=== PATIENT | male | born 1935 | race Caucasian/White ===

== ENCOUNTER 2016-11-29 12:39 | Inpatient (IN) | payer OTHER ==
--- NOTE | 2016-11-29 12:50 | PDOC ---
History of Present Illness - General History Source: Patient Exam Limitations: No Limitations - History of Present Illness Initial Comments: 11/29/16 12:51 The patient is an 81-year-old [place]-Speaking male, lives alone at his private residence, with a significant past medical history of hypertension who presents to the emergency department via EMS status post unwitnessed fall. The patients neighbor from across the street, found him slightly verbal at the bottom of approximately four steps. EMS was called. On EMS arrival, the patient was combative. EMS states that the patient is not on any medications, as they confirmed it with the patients daughter. Allergies: None Known Past Surgical History: Cholecystectomy Social History: No tobacco, ETOH and recreational drug use. <Ila Monzon - Last Filed: 11/29/16 15:33> <Scotty Barry - Last Filed: 11/29/16 15:48> - General Stated Complaint: FALL Time Seen by Provider: 11/29/16 12:50 Past History <Ila Monzon - Last Filed: 11/29/16 15:33> - Past Medical History HTN: Yes - Surgical History Cholecystectomy: Yes - Psycho/Social/Smoking Cessation Hx Suicidal Ideation: No Smoking Status: No Smoking History: Never smoked Number of Cigarettes Smoked Daily: 0 <Scotty Barry - Last Filed: 11/29/16 15:48> - Past Medical History Allergies/Adverse Reactions: Allergies Allergy/AdvReac Type Severity Reaction Status Date / Time No Known Allergies Allergy Verified 11/29/16 13:26 Home Medications: Ambulatory Orders Unobtainable [Unobtainable] 06/12/14 Review of Systems - Review of Systems Able to Perform ROS?: No (Unobtainable) <Ila Monzon - Last Filed: 11/29/16 15:33> *Physical Exam - Physical Exam Comments: 11/29/16 12:51 GENERAL: The patient is awake, alert, looking around HEAD: Normocephalic, large contussoin/eccchymosis on R orbit EYES: 3mm/symmetric bilaterally, large contusion/ecchyosis over R orbit, L sided gaze deviation ENT: nonverbalk Moist mucous membranes. NECK: Normal range of motion, supple, no tenderness LUNGS: Breath sounds equal, clear to auscultation bilaterally. No wheezes, no rhonchi, no rales. HEART: Regular rate and rhythm, ABDOMEN: Soft, nontender, normoactive bowel sounds. No guarding, no rebound. No CVA tenderness EXTREMITIES: Normal range of motion, no edema. No clubbing or cyanosis. No cords, erythema, or tenderness. NEUROLOGICAL: No facial assymetry, moving all 4 extremities spontaneously, withdarws to pain bl SKIN: Warm, Dry, normal turgor. <MonzonIla hernandez - Last Filed: 11/29/16 15:33> ED Treatment Course - LABORATORY CBC & Chemistry Diagram: 11/29/16 13:00 11/29/16 13:00 - RADIOLOGY Radiograph Interpretation: 11/29/16 14:19 EXAM: RAD/CHEST X-RAY PORTABLE IMPRESSION: Frontal view of the chest is provided. Prior study dated October. No focal consolidation or pleural effusion is seen. There is some increased interstitial lung markings slightly more pronounced compared to prior study, which may be chronic. Calcification of the aorta is consistent with atherosclerotic disease. Cardiac silhouette is within normal limits. Elevation of the humeral heads raises concern for rotator cuff tears. EXAM: CT/CERVICAL SPINE CT W/O CONTR IMPRESSION: No gross fracture is identified. Both orbits appear intact. Moderate right periorbital and preseptal soft tissue swelling is present as well as soft tissue swelling over the right cheek and the right superior orbital margin/forehead. CT scan of the cervical spine without intravenous contrast Coronal and sagittal reconstruction images were obtained. There is mild anterior listhesis of C5 over C6, approximately 3 mm that is likely degenerative. Otherwise, no gross fracture, subluxation or prevertebral soft tissue swelling is seen. No jumped facets are identified. There is significant bilateral facet hypertrophy from C3 through C7 level . C5-C6 anterior spondylosis. Visualized portion of the airway appears unremarkable. No gross enlarged lymph nodes are identified. Lung windows at the thoracic inlet appear unremarkable. Note is made of a postop defect in the right mastoid air cells. EXAM: CT/HEAD CT WITHOUT CONTRAST IMPRESSION: Status post trauma. Rule out hemorrhage CT scan of the brain without intravenous contrast. Since 06/12/2014, there remains moderate atrophy, ventricular dilatation and chronic microvascular ischemic changes. No mass lesion, gross acute infarct or intracranial hemorrhage is seen. There is no shift of the midline structures Mild to moderate deviation of the nasal septum to the right. Mild mucosal thickening in the right maxillary antrum. Calcification of the cavernous carotid arteries are present. The mastoid air cells are well aerated and the calvarium is intact. A left-sided hearing aid is noted. There is moderate right periorbital and preseptal soft tissue swelling extending to the right cheek and forehead. EXAM: CT/FACIAL BONES CT W/O CONTRAST IMPRESSION: CT scan of the facial bones without intravenous contrast. Coronal and sagittal reconstruction images were obtained. There is moderate right periorbital and preseptal soft tissue swelling extending to the right cheek , inferiorly as well as laterally over the anterior aspect of the zygomatic arch and extending superiorly to the right for head. Both orbits appear intact without evidence of a fracture. No other fracture is identified. Both eye globes appear intact . Bilateral upper neck and submandibular subcentimeter lymph nodes are present which are nonspecific. Mild mucosal thickening in the ethmoid air cells. Postop changes in the nasal cavity. [id number] mucosal thickening in the right maxillary antrum, inferiorly. Wpguq-lu-iczxaoxx sized calcified plaque at the common carotid bifurcation, bilaterally. <Ila Monzon - Last Filed: 11/29/16 15:33> - LABORATORY CBC & Chemistry Diagram: 11/29/16 13:00 11/29/16 13:00 <Scotty Barry - Last Filed: 11/29/16 15:48> Medical Decision Making - Medical Decision Making 11/29/16 14:[address] Allan rS. Immediate response. Case was discussed. Accepts case. 11/29/16 14:28 Called Neurologist, Dr. Shea. Case was discussed. Accepts case. <Ila Monzon - Last Filed: 11/29/16 15:33> - Medical Decision Making 11/29/16 12:59 81Y hx of htn, unknown other pmhx, found down in [facility] front stoop at the bottom of about 4 steps - found by neighbor to be on the groun d- was originall combative by EMS, pt has large contusion on his R face with hematoma over his right eye. pt otherwise looking around and pulling away, but is not verbal to any questions in citizen [place] or [place]. Pt also noted to be looking on the left side. He was combative and seen moving all 4 extremities. Pupils were 3mm and reactive symmetricaly. will give the patient ativan as pt will not lie still. unclera cause for fall - (?slip and fall, cva, syncope, bleed?) concern for possible ICH --> pt rushed to CT after labs and giving pt some ativan. will also obtain CT head, cspine, orbits ekg to r/o arrythmia per EMS who talked to red pt not on any medications currently. no history of a/c use reported. 11/29/16 13:44 no obvious source of blood on the CT head awaiting official read pts bp elevated to 199, will repeat, if elevated will give labetalol for bp control pt with L gae preference, withdrawning from pain bilaterally 11/29/16 14:[address] head cspine facial bones w/o acute fx or bleed pt still not appropriately responsive leaning more towards CVA as cause for his fall - case d/w dr. alexandra agree with mangaement will admit to telemetry as possible arrythmia as cause for fall as well. Case discussed in detail with admitting physician including history, physical exam and ancillary studies. Admitting physician has assumed care for the patient, will follow all pending diagnostics and will complete the evaluation and treatment. CRITICAL CARE DOCUMENTATION: I spent ~35 minutes of Critical Care time, excluding separately billable procedures, involving high complexity decision making to assess, manipulate and support vital system function(s) to treat single or multiple vital organ system failure and/or to prevent further life threatening deterioration of the patient' s condition. 11/29/16 14:31 11/29/16 14:37 son mentioned that the pt has been very depressed recently as his is in the [place] will ck tylenol, asa, utox, etoh level deut o prior history of etoh abbuse 11/29/16 14:[address] shea - agreed with managment requests MRI Also after the CT, the pt was noted to be hypoxic down to the 70s wit andrade good wave form - suspect it was secondary to the ativan. the pt was put on a NRB for approx 20 min, aftewraeds it was removed and the pts sat was 96-97 on 3L of NC. and was respireing spontaneously. <Scotty Barry - Last Filed: 11/29/16 15:48> *DC/Admit/Observation/Transfer - Attestations Scribe Attestion: 11/29/16 12:51 Documentation prepared by Ila Monzon, acting as medical communication specialist for Scotty Barry MD. <Ila Monzon - Last Filed: 11/29/16 15:33> - Discharge Dispostion Admit: Yes <Scotty Barry - Last Filed: 11/29/16 15:48> Diagnosis at time of Disposition: Head injury Qualifiers: Encounter type: initial encounter Qualified Code(s): S09.90XA - Unspecified injury of head, initial encounter Altered mental status Qualifiers: Altered mental status type: unspecified Qualified Code(s): R41.82 - Altered mental status, unspecified - Discharge Dispostion Condition at time of disposition: Guarded
[2016-11-29] MEDS ORDERED: LORAZEPAM CARPU-JECT 2 MG/ML DISP.SYRIN IVPUSH ONE (12:57)
[2016-11-29] MEDS ORDERED: LORAZEPAM CARPU-JECT 2 MG/ML DISP.SYRIN ONE (12:59)
[2016-11-29 13:11] LABS: BASOPHIL 0.4 % (0-2.0); EOSINOPHIL 0.2 % (0-4.5); MCH 28.2 pg (25.7-33.7); MCHC 32.4 g/dl (32.0-35.9); MEAN PLT VOLUME 8.6 fl (7.5-11.1); NEUTROPHILS 82.7 % (42.8-82.8); PLATELET COUNT 230 K/MM3 (134-434); RDW 15.4 % (11.9-15.9); WHITE BLOOD COUNT 9.2 K/mm3 (4.0-10.0)
[2016-11-29 13:29] LABS: ALBUMIN 3.9 g/dl (3.4-5.0); ANION GAP 13 (8-16); BILIRUBIN,TOTAL 0.6 mg/dL (0.2-1.0); CALCIUM 8.4 mg/dL (8.5-10.1); CO2 21 mmol/L (21-32); GLUCOSE,RANDOM 152 mg/dL (74-106); SGPT/ALT 24 U/L (12-78); TOT PROT 7.1 g/dl (6.4-8.2)
[2016-11-29 13:32] LABS: ALK PHOS 124 U/L (45-117); TROPONIN I < 0.02 ng/ml (0.00-0.05)
[2016-11-29 13:34] LABS: MAGNESIUM 2.1 mg/dL (1.8-2.4); SGOT/AST 33 U/L (15-37)
[2016-11-29] MEDS ORDERED: LABETALOL HCL 5 MG/1 ML (100MG/20 ML VIAL) IVPUSH ONE (13:44)
[2016-11-29 13:50] LABS: INR 1.02 (0.82-1.09); PROTHROMBIN TIME (PATIENT) 11.2 SEC (9.98-11.88)
[2016-11-29] MEDS ORDERED: LABETALOL HCL 5 MG/1 ML (100MG/20 ML VIAL) ONE (13:51)
[2016-11-29] MEDS ORDERED: DIPHTH,PERTUSS(ACELL),TET VAC 0.5 ML VIAL IM ONE (14:31)
[2016-11-29 15:30] LABS: SALICYLATE < 4.0 mg/dl (0.0-30.0)
[2016-11-29 15:38] LABS: ALCOHOL < 5.0 mg/dl (0-5)
--- NOTE | 2016-11-29 15:44 | EKG ---
Test Reason : Blood Pressure : / mmHG Vent. Rate : 093 BPM Atrial Rate : 093 BPM P-R Int : 268 ms QRS Dur : 088 ms QT Int : 354 ms P-R-T Axes : 057 076 039 degrees QTc Int : 440 ms SINUS RHYTHM WITH 1ST DEGREE A-V BLOCK WITH OCCASIONAL PREMATURE VENTRICULAR COMPLEXES NONSPECIFIC ST ABNORMALITY WHEN COMPARED WITH ECG OF 03-OCT-2010 17:33, PREMATURE VENTRICULAR COMPLEXES ARE NOW PRESENT Confirmed by MINDI MONROE MD ([id number]) on 11/29/2016 3:44:20 PM Referred By: Confirmed By:MINDI MONROE MD
--- NOTE | 2016-11-29 15:55 | CON.CARD ---
Consult Consult Specialty:: cardiology Reason for Consultation:: s/p fall: ? CVA; ? syncope - History of Present Illness History of Present Illness: The patient is an 81-year-old man (braden Arana), lives alone at his private residence, with a significant past medical history of hypertension, ETOH abuse ( last drank about a year ago, per pt's son), who presents to the emergency department via EMS status post unwitnessed fall. The patients neighbor from across the street, found him slightly verbal at the bottom of approximately four steps. EMS was called. On EMS arrival, the patient was combative. EMS states that the patient is not on any medications, as they confirmed it with the patients daughter. (According to pt's sons, pt has been on medications in the past for HTN, but has been noncompliant to them). - History Source History Provided By: Family Member, Medical Record Limitations to Obtaining History: Other (pt does not answer verbal queries; fights physcial examination) - Past Medical History Cardio/Vascular: Yes: HTN Renal/: No: Renal Failure Psych: Yes: Other (pt's sons say he has, since the of his a year ago , become more forgetful, repetitive in speech, "demented") Musculoskeletal: Yes: Other (unsteady gait) - Alcohol/Substance Use Hx Alcohol Use: Yes - Smoking History Smoking history: Never smoked Aproximately how many cigarettes per day: 0 - Social History Usual Living Arrangement: With Child Home Medications - Allergies Allergies/Adverse Reactions: Allergies Allergy/AdvReac Type Severity Reaction Status Date / Time No Known Allergies Allergy Verified 11/29/16 13:26 - Home Medications Home Medications: Ambulatory Orders Unobtainable [Unobtainable] 06/12/14 Family Disease History - Family Disease History Family History: Denies Review of Systems - Review of Systems Constitutional: reports: Weakness Eyes: reports: No Symptoms HENT: reports: No Symptoms Neck: reports: No Symptoms Cardiovascular: reports: No Symptoms Respiratory: reports: No Symptoms Gastrointestinal: reports: No Symptoms Genitourinary: reports: No Symptoms Breasts: reports: No Symptoms Reported Musculoskeletal: reports: Decreased ROM, Muscle Weakness Neurological: reports: Weakness Psychiatric: reports: Other (dementia) - Risk Factors Known Risk Factors: Yes: Age, Gender, Hypertension, Physical Inactivity Vital Signs: Vital Signs Temperature 97.7 F 11/29/16 12:53 Pulse Rate 90 11/29/16 15:29 Respiratory Rate 18 11/29/16 15:29 Blood Pressure 148/89 11/29/16 14:25 O2 Sat by Pulse Oximetry (%) 91 L 11/29/16 15:29 Constitutional: Yes: Other (facial eccymosis, hematomas) Eyes: Yes: Other Neck: Yes: WNL Respiratory: Yes: Regular Gastrointestinal: Yes: Soft Renal/: No: Anuria Cardiovascular: Yes: Regular Rate and Rhythm JVD: No Carotid Bruit: No PMI: Non-Displaced Heart Sounds: Yes: S1 (split S1), S2 Musculoskeletal: Yes: Muscle Weakness Extremities: Yes: Cool Edema: No Peripheral Pulses WNL: Yes Integumentary: Yes: Bruising, Laceration, Other Neurological: Yes: Weakness Psychiatric: Yes: Agitated, Other - Other Data Labs, Other Data: INR, PTT INR 1.02 (0.82-1.09) 11/29/16 13:00 Abnormal Lab Results 11/29/16 11/29/16 11/29/16 13:00 13:00 14:35 RBC 5.61 H Monocytes % 3.4 L Random Glucose 152 H Calcium 8.4 L Alkaline Phosphatase 124 H D Creatine Kinase 312 H CK-MB (CK-2) 5.618 H Acetaminophen < 2.0 L Imaging - Results Chest X-ray: Image Reviewed (no acute pathology) Ultrasound: Image Reviewed (ECHO: limited study (pt combative); overal normal LVEF; aortic valve appears to open well) EKG: Image Reviewed (NSR) Problem List - Problems (1) Altered mental status Code(s): R41.82 - ALTERED MENTAL STATUS, UNSPECIFIED Qualifiers: Altered mental status type: unspecified Qualified Code(s): R41.82 - Altered mental status, unspecified (2) Head injury Code(s): S09.90XA - UNSPECIFIED INJURY OF HEAD, INITIAL ENCOUNTER Qualifiers: Encounter type: initial encounter Qualified Code(s): S09.90XA - Unspecified injury of head, initial encounter (3) Soft tissue injury Code(s): T14.8 - OTHER INJURY OF UNSPECIFIED BODY REGION (4) Fall Assessment/Plan: unwitnessed fall; family says pt has been unsteady on his feet for months, if not years. CT head: no acute IC pathology. TNI < 0.02; f/u serially. TSH WNL. ECHO: normal LVEF; no significant valvular abnormalities, but limited study. Maintain hydration; check orthostatics. Carotid artery US. F/u with neurology. Code(s): W19.XXXA - UNSPECIFIED FALL, INITIAL ENCOUNTER (5) HTN (hypertension) Code(s): I10 - ESSENTIAL (PRIMARY) HYPERTENSION (6) ETOH abuse Assessment/Plan: Per son, pt has had no alcohol for the past year. Code(s): F10.10 - ALCOHOL ABUSE, UNCOMPLICATED (7) Dementia Assessment/Plan: Increasing mental deterioration since of his a year ago (per sons). f/u workup. Code(s): F03.90 - UNSPECIFIED DEMENTIA WITHOUT BEHAVIORAL DISTURBANCE
[2016-11-29 16:31] VITALS: BMI 22.4
[2016-11-29] MEDS ORDERED: DEXTROSE 5%-1/3 NS - 500 ML IV SCH (22:45)
[2016-11-29] MEDS: LORAZEPAM CARPU-JECT 2 MG/ML DISP.SYRIN IVPUSH PRN (23:26)
[2016-11-30] MEDS: LORAZEPAM CARPU-JECT 2 MG/ML DISP.SYRIN IVPUSH PRN ×3 (07:23→23:40)
--- NOTE | 2016-11-30 10:30 | PN ---
Progress Note, Physician Chief Complaint: Cardiology for Hank. History of Present Illness: TELE: NSR with intermittent VPCs Echo done yesterday- technically difficult study but LV function appeared grossly normal. - Current Medication List Current Medications: Active Medications Dextrose/Sodium Chloride (D5-1/3ns -) 500 mls @ 75 mls/hr IV ASDIR ART Last Admin: 11/30/16 10:27 Dose: 75 mls/hr Lorazepam (Ativan Injection -) 0.5 mg IVPUSH Q6H PRN PRN Reason: ANXIETY Last Admin: 11/30/16 07:23 Dose: 0.5 mg - Objective Vital Signs: Vital Signs Temperature 98.2 F 11/29/16 21:50 Pulse Rate 90 11/29/16 21:50 Respiratory Rate 20 11/29/16 21:50 Blood Pressure 112/50 11/29/16 21:50 O2 Sat by Pulse Oximetry (%) 99 11/29/16 21:00 Constitutional: Yes: Other (agitated, in restraints) HENT: Yes: Other (right periorbital hematoma) Cardiovascular: Yes: Regular Rate and Rhythm Respiratory: Yes: CTA Bilaterally, Other (clear anteriorly) Gastrointestinal: Yes: Soft Edema: No Labs: INR, PTT INR 1.02 (0.82-1.09) 11/29/16 13:00 Laboratory Tests 11/29/16 11/29/16 13:00 13:00 WBC 9.2 Hgb 15.8 Hct 48.8 Plt Count 230 Potassium 3.8 Creatinine 1.0 D Troponin I < 0.02 - ....Imaging EKG: Image Reviewed Assessment/Plan IMP: 81 M s/p fall: syncope vs seizure? REC: Grossly nl LV function on echo yesterday. To continue telemetry. Neuro evaluation pending.
--- NOTE | 2016-11-30 13:13 | EKG ---
Test Reason : Blood Pressure : / mmHG Vent. Rate : 086 BPM Atrial Rate : 086 BPM P-R Int : 242 ms QRS Dur : 084 ms QT Int : 378 ms P-R-T Axes : 042 065 055 degrees QTc Int : 452 ms SINUS RHYTHM WITH 1ST DEGREE A-V BLOCK OTHERWISE NORMAL ECG WHEN COMPARED WITH ECG OF 29-NOV-2016 13:36, PREMATURE VENTRICULAR COMPLEXES ARE NO LONGER PRESENT Confirmed by MABEL DAVIS, MINDI ([id number]) on 11/30/2016 1:13:17 PM Referred By: John CASTRO Confirmed By:MINDI MONROE MD
--- NOTE | 2016-11-30 13:52 | PN ---
Progress Note, Physician History of Present Illness: 81 yo old who fell and was found outdoors on the steps - Current Medication List Current Medications: Active Medications Dextrose/Sodium Chloride (D5-1/3ns -) 500 mls @ 75 mls/hr IV ASDIR ART Last Admin: 11/30/16 10:27 Dose: 75 mls/hr Lorazepam (Ativan Injection -) 0.5 mg IVPUSH Q6H PRN PRN Reason: ANXIETY Last Admin: 11/30/16 07:23 Dose: 0.5 mg - Objective Vital Signs: Vital Signs Temperature 98.2 F 11/29/16 21:50 Pulse Rate 90 11/29/16 21:50 Respiratory Rate 20 11/29/16 21:50 Blood Pressure 112/50 11/29/16 21:50 O2 Sat by Pulse Oximetry (%) 97 11/30/16 09:00 Labs: INR, PTT INR 1.02 (0.82-1.09) 11/29/16 13:00
[2016-11-30] MEDS ORDERED: ACETAMINOPHEN 500 MG TABLET (FP) PO PRN (16:56)
--- NOTE | 2016-11-30 19:09 | CONSULT ---
Consult - History of Present Illness History of Present Illness: 81 yo old who fell and was found outdoors on the steps. He had fallen and injured the right side of his head and periorbital area. Upon arrival to the ED he was hypothermic and disoriented. There was local trauma to the face and head. The head CT reported generalized atrophy with ventriculomegaly but no acute trauma or ICH. CT of facial bones and cervical spine was neg for fracture. Since admission he has become more agitated as medications were adjusted to avoid oversedation in the presence of head trauma. The son reports the patient has had a progressive slow decline in memory function and becomes agitated easily over the past year. He lives alone since of 59 years was placed in NH with dementia. 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 Cardio/Vascular: Yes: HTN Renal/: No: Renal Failure Psych: Yes: Other (pt's sons say he has, since the of his a year ago , become more forgetful, repetitive in speech, "demented") Musculoskeletal: Yes: Other (unsteady gait) - Alcohol/Substance Use Hx Alcohol Use: Yes - Smoking History Smoking history: Never smoked Have you smoked in the past 12 months: No Aproximately how many cigarettes per day: 0 - Social History Usual Living Arrangement: With Child Home Medications - Allergies Allergies/Adverse Reactions: Allergies Allergy/AdvReac Type Severity Reaction Status Date / Time No Known Allergies Allergy Verified 11/29/16 13:26 - Home Medications Home Medications: Ambulatory Orders Unobtainable [Unobtainable] 06/12/14 Physical Exam Vital Signs: Vital Signs Temperature 98.2 F 11/29/16 21:50 Pulse Rate 87 11/30/16 14:09 Respiratory Rate 20 11/30/16 14:09 Blood Pressure 138/65 11/30/16 14:09 O2 Sat by Pulse Oximetry (%) 97 11/30/16 09:00 Constitutional: Yes: Well Nourished, Moderate Distress (cries out in pain has he holds the right side of his head. son is able to speak with patient in [place] language with no aphasia. He is disoriented to place and time.) HENT: No: Atraumatic (right sided periorbital edema, eccyhmosis and erythemia noted with EOM full) Respiratory: Yes: Regular Neurological: Yes: Alert, Cran Nerves II-XII Intact. No: Oriented (to person only.), Aphasia, Ataxia, Dysarthria, Facial Droop (No focal motor deficits, purposefully using all extremities. DTR 1/4 with absent ankle reflexes and bilateral upgoing plantar response. 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 Supportive medical care by IM team.
[2016-11-30] MEDS ORDERED: INFLUENZA VACCINE 45 MCG/0.5 ML (MDV 16-17) IM ONE (19:15)
--- NOTE | 2016-11-30 20:47 | HP ---
Admitting History and Physical - Primary Care Physician PCP: Allan Sr - Admission Chief Complaint: Head injury,. Concussion History of Present Illness: As per daughter who has an apartment in his house he had gone out of the house yesterday with a bucket of salt and was waiting to go see his in the NH when he fell on the steps and hit his head. His neighbour across the street saw him sitting and being non verbal and called the ambulance.In the ambulance he became very combative and brought to ED. Besides being confused and trashing around there was no focal neuro deficit. He was sedated with Ativan 1mg and underwent a CT of head which did not show any acute changes and he was admitted . As per family he has become very forgetfu and agitated on occasion and since his was confined to NH for dementia has been more emotional, wobbly while walking and refusing to take any meds for hypertension. History Source: Family Member Limitations to Obtaining History: Dementia, Other (disoriented claiming he is home) - Past Medical History [employer]: Yes: Dementia Cardiovascular: Yes: HTN Pulmonary: No: Asthma, Bronchitis, Cancer, COPD, O2 Dependent, Pneumonia, Previously Intubated, Pulmonary Embolus, Pulmonary Fibrosis, Sleep Apnea, Other Renal/: No: Renal Failure Psych: Yes: Other (pt's sons say he has, since the of his a year ago , become more forgetful, repetitive in speech, "demented") Musculoskeletal: Yes: Other (unsteady gait) - Smoking History Smoking history: Never smoked Have you smoked in the past 12 months: No Aproximately how many cigarettes per day: 0 - Alcohol/Substance Use Hx Alcohol Use: Yes History of Substance Use: reports: None - Social History Usual Living Arrangement: Yes: Alone, Other (daughter lives in the apartment upstairs) Home Medications - Allergies Allergies/Adverse Reactions: Allergies Allergy/AdvReac Type Severity Reaction Status Date / Time No Known Allergies Allergy Verified 11/29/16 13:26 - Home Medications Home Medications: Ambulatory Orders NK [No Known Home Medication] 11/30/16 Review of Systems - Review of Systems Eyes: reports: No Symptoms HENT: reports: No Symptoms Neck: reports: No Symptoms Cardiovascular: denies: No Symptoms, Chest Pain, Edema, Palpitations, Shortness of Breath, Other Respiratory: denies: No Symptoms, Cough, Exercise Intolerance, Hemoptysis, Orthopnea, PND, Snoring, SOB, SOB on Exertion, Wheezing, Other Gastrointestinal: reports: No Symptoms Genitourinary: reports: No Symptoms Musculoskeletal: reports: No Symptoms Integumentary: reports: No Symptoms Neurological: reports: Confusion, Unsteady Gait Endocrine: reports: No Symptoms Psychiatric: reports: Anxiety, Panic Physical Examination Vital Signs: Vital Signs Temperature 98.2 F 11/30/16 19:47 Pulse Rate 92 H 11/30/16 19:47 Respiratory Rate 20 11/30/16 19:47 Blood Pressure 128/72 11/30/16 19:47 O2 Sat by Pulse Oximetry (%) 97 11/30/16 09:00 Findings/Remarks: There is a huge hematoma on lateral to right eye and also around the eye with inability to open the right eye.There is hematoma of the nose. There is excoriation of skin just above the forehead with a dressing Constitutional: Yes: Anxious, Other (disoriented) Eyes: Yes: Other (there is severe edema of both eyelids of right eye, the eye lids there is subconjubctival hemorrhage Left eye is normal and pupil reacts to light) HENT: Yes: Pharyngeal Erythema Neck: Yes: Supple, Trachea Midline Cardiovascular: Yes: Regular Rate and Rhythm, S1, S2 Respiratory: Yes: Regular, CTA Bilaterally Gastrointestinal: Yes: Normal Bowel Sounds, Soft Renal/: Yes: WNL Breast(s): Yes: WNL Musculoskeletal: Yes: WNL Extremities: Yes: WNL Edema: No Peripheral Pulses WNL: Yes Integumentary: Yes: Other (There ia an area about 2cm by 3cm just above the forehead with excoriation of the skin) Neurological: Yes: Alert, Confusion, Cran Nerves II-XII Intact Psychiatric: Yes: Alert Imaging - Results Cat Scan: Report Reviewed EKG: Report Reviewed Problem List - Problems (1) Altered mental status Assessment/Plan: He is dioriented and confused. As per family he has been agitated and very emotional at home Code(s): R41.82 - ALTERED MENTAL STATUS, UNSPECIFIED Qualifiers: Altered mental status type: unspecified Qualified Code(s): R41.82 - Altered mental status, unspecified (2) Dementia Assessment/Plan: As per family he has been confused off and on. Sometimes very agitated and refusing to even eat. Code(s): F03.90 - UNSPECIFIED DEMENTIA WITHOUT BEHAVIORAL DISTURBANCE (3) HTN (hypertension) Assessment/Plan: Was hypertensive in past and has been refusing to take meds Code(s): I10 - ESSENTIAL (PRIMARY) HYPERTENSION (4) Head injury Code(s): S09.90XA - UNSPECIFIED INJURY OF HEAD, INITIAL ENCOUNTER Qualifiers: Encounter type: initial encounter Qualified Code(s): S09.90XA - Unspecified injury of head, initial encounter (5) Soft tissue injury Assessment/Plan: Hematoma of the lateral area to right eye, edema of both eyelids of right eye, hematome of the nose Code(s): T14.8 - OTHER INJURY OF UNSPECIFIED BODY REGION Assessment/Plan Has episodes of severe agitation requiring sedation with IV Ativan. Will start small dose of Seroquel for agitation and dementia. 's consult appreciated. Will need placement in the NH.
[2016-11-30] MEDS ORDERED: QUEtiapine FUMARATE 25 MG TABLET (FP) PO SCH (22:00)
[2016-12-01] MEDS: LORAZEPAM CARPU-JECT 2 MG/ML DISP.SYRIN IVPUSH PRN ×3 (08:24→21:16)
[2016-12-01] MEDS ORDERED: LORAZEPAM CARPU-JECT 2 MG/ML DISP.SYRIN IVPUSH PRN (08:41)
[2016-12-01] MEDS ORDERED: LORAZEPAM CARPU-JECT 2 MG/ML DISP.SYRIN IVPUSH STA (09:19)
[2016-12-01] MEDS ORDERED: QUEtiapine FUMARATE 50 MG TABLET PO SCH (10:00)
[2016-12-01] MEDS: QUEtiapine FUMARATE 25 MG TABLET (FP) PO SCH ×3 (10:52→21:11)
--- NOTE | 2016-12-01 11:25 | PN ---
Progress Note, Physician Chief Complaint: Coverage for [employer] Sitting in chair in hallway, no acute distress Neuro consult noted - Current Medication List Current Medications: Active Medications Acetaminophen (Tylenol -) 500 mg PO Q4H PRN PRN Reason: FEVER OR PAIN Lorazepam (Ativan Injection -) 1 mg IVPUSH Q6H PRN PRN Reason: ANXIETY Quetiapine Fumarate (Seroquel -) 25 mg PO BID ART Last Admin: 12/01/16 10:52 Dose: Not Given - Objective Vital Signs: Vital Signs Temperature 97.5 F L 12/01/16 02:00 Pulse Rate 108 H 12/01/16 11:06 Respiratory Rate 20 12/01/16 11:06 Blood Pressure 130/56 12/01/16 11:06 O2 Sat by Pulse Oximetry (%) 97 11/30/16 09:00 Constitutional: Yes: Calm Cardiovascular: Yes: Regular Rate and Rhythm Respiratory: Yes: CTA Bilaterally Gastrointestinal: Yes: Soft Edema: No Labs: INR, PTT INR 1.02 (0.82-1.09) 11/29/16 13:00 Assessment/Plan IMP: 81 M s/p fall: likely mechanical REC: Grossly nl LV function on echo. Telemetry unrevealing. Falls precautions. SNF placement recommended due to progressive dementia.
--- NOTE | 2016-12-01 22:28 | PN ---
Progress Note, Physician History of Present Illness: Confused and agitated off and on.Was sedated with Ativan as he was trashing around. Presently well sedated. - Current Medication List Current Medications: Active Medications Acetaminophen (Tylenol -) 500 mg PO Q4H PRN PRN Reason: FEVER OR PAIN Lorazepam (Ativan Injection -) 1 mg IVPUSH Q4H PRN PRN Reason: AGITATION Last Admin: 12/01/16 21:16 Dose: 1 mg Quetiapine Fumarate (Seroquel -) 25 mg PO BID ART Last Admin: 12/01/16 21:11 Dose: Not Given - Objective Vital Signs: Vital Signs Temperature 98.0 F 12/01/16 15:29 Pulse Rate 97 H 12/01/16 15:29 Respiratory Rate 18 12/01/16 15:29 Blood Pressure 111/72 12/01/16 15:29 O2 Sat by Pulse Oximetry (%) 97 11/30/16 09:00 Constitutional: Yes: No Distress Eyes: Yes: Other (right eye with severe lid hematoma) HENT: Yes: WNL Neck: Yes: Supple Cardiovascular: Yes: Regular Rate and Rhythm, S1, S2 Respiratory: Yes: CTA Bilaterally Gastrointestinal: Yes: Normal Bowel Sounds, Soft Genitourinary: Yes: WNL Musculoskeletal: Yes: WNL Extremities: Yes: WNL Edema: No Peripheral Pulses WNL: Yes Integumentary: Yes: Bruising, Other (swelling of the nose and right side of face and right side of frontal area is less) Wound/Incision: Yes: Other (forehead woud is clean and covered with scab) Neurological: Yes: Confusion, Cran Nerves II-XII Intact ...Motor Strength: WNL Psychiatric: Yes: Agitated Labs: INR, PTT INR 1.02 (0.82-1.09) 11/29/16 13:00 Problem List - Problems (1) Altered mental status Assessment/Plan: Continues confused and agitated off and on Code(s): R41.82 - ALTERED MENTAL STATUS, UNSPECIFIED Qualifiers: Altered mental status type: unspecified Qualified Code(s): R41.82 - Altered mental status, unspecified (2) Dementia Assessment/Plan: Dementia is moderate and will require intermediate treatment Code(s): F03.90 - UNSPECIFIED DEMENTIA WITHOUT BEHAVIORAL DISTURBANCE (3) HTN (hypertension) Code(s): I10 - ESSENTIAL (PRIMARY) HYPERTENSION (4) Head injury Code(s): S09.90XA - UNSPECIFIED INJURY OF HEAD, INITIAL ENCOUNTER Qualifiers: Encounter type: initial encounter Qualified Code(s): S09.90XA - Unspecified injury of head, initial encounter (5) Soft tissue injury Code(s): T14.8 - OTHER INJURY OF UNSPECIFIED BODY REGION Assessment/Plan Will get psychiatrist evaluation before placement. Continue Ativan for agitation and have started him on Seroquel.
[2016-12-02] MEDS: LORAZEPAM CARPU-JECT 2 MG/ML DISP.SYRIN IVPUSH PRN ×4 (03:57→21:48)
[2016-12-02 07:11] LABS: BASOPHIL 0.7 % (0-2.0); EOSINOPHIL 0.3 % (0-4.5); MCH 28.6 pg (25.7-33.7); MCHC 33.6 g/dl (32.0-35.9); MEAN CELL VOLUME 85.3 fl (80-96); MEAN PLT VOLUME 8.7 fl (7.5-11.1); NEUTROPHILS 66.9 % (42.8-82.8); PLATELET COUNT 207 K/MM3 (134-434); RDW 15.1 % (11.9-15.9); WHITE BLOOD COUNT 9.3 K/mm3 (4.0-10.0)
[2016-12-02 07:43] LABS: ALBUMIN 3.5 g/dl (3.4-5.0); ANION GAP 10 (8-16); BILIRUBIN,TOTAL 0.9 mg/dL (0.2-1.0); CALCIUM 8.5 mg/dL (8.5-10.1); CO2 26 mmol/L (21-32); CREATININE 0.7 mg/dL (0.7-1.3); GLUCOSE,RANDOM 83 mg/dL (74-106); SGOT/AST 28 U/L (15-37); SGPT/ALT 25 U/L (12-78); TOT PROT 6.5 g/dl (6.4-8.2)
[2016-12-02 07:44] LABS: ALK PHOS 100 U/L (45-117)
[2016-12-02] MEDS: QUEtiapine FUMARATE 25 MG TABLET (FP) PO SCH ×2 (08:28→09:21)
--- NOTE | 2016-12-02 11:04 | CON.PSY ---
Psychiatry Consult Chief Complaint: +. FGamily re[ports inbcreased cognitive impairment since was placed in a NH. Patient apparantly fell while trying to put salt in front of his house. Symptoms: reports: Memory Impairment, Inability to Control Temper, Aggressivity , Impulsivity, Oppositionalism - Previous Psychiatric Treatment Outpatient: None Inpatient: None - Previous Substance Abuse Treatment Outpatient: None Inpatient: None - Family History Family History: Unremarkable - Current Medications Current Medications: Active Medications Acetaminophen (Tylenol -) 500 mg PO Q4H PRN PRN Reason: FEVER OR PAIN Lorazepam (Ativan Injection -) 1 mg IVPUSH Q4H PRN PRN Reason: AGITATION Last Admin: 12/02/16 03:57 Dose: 1 mg Memantine (Namenda -) 5 mg PO BID ART Olanzapine (Zyprexa -) 5 mg PO BID ART - Allergies Allergies: Allergies Allergy/AdvReac Type Severity Reaction Status Date / Time No Known Allergies Allergy Verified 11/29/16 13:26 - Current Living Status Usual Living Arrangement: With Significant Other - Current Mental Status Evaluation Appearance: Disheveled Attitude: Belligerent - Affect Affect: Constrictive Appropriateness: Not Appropriate - Mood Mood: Angry - Speech/Language Expressive: Delayed - Psychomotor Activity Psychomotor Activity: Agitated - Thought Process Thought Process: Loosening of Associations - Thought Content Hallucinations: Absent Delusions: Absent - Self Perception Self Perception: Depersonalization - Cognition Attention: Diminished Orientation: Time, Person, Place Memory, Immediate Recall: Impaired Memory, Remote: Impaired - Concentration Serial Sevens Intact: No Simple Calculations Intact: No - Abstraction Proverb Interpretation: Impaired Judgement: Severely Impaired - Insight Insight: Impaired - Impulse Control Impulse Control: Severly Impaired - Suicidal Ideation Suicidal Ideation: No - Homicidal Ideation Homicidal Ideation: No
--- NOTE | 2016-12-02 11:25 | PN ---
Progress Note (short form) - Note Progress Note: Neurology 81 yo old who fell and was found outdoors on the steps, previously seen by Dr. Shea. He had fallen and injured the right side of his head and periorbital area. Upon arrival to the ED he was hypothermic and disoriented. There was local trauma to the face and head. The head CT reported generalized atrophy with ventriculomegaly but no acute trauma or ICH. CT of facial bones and cervical spine was neg for fracture. Since admission he has become more agitated as medications were adjusted to avoid oversedation in the presence of head trauma. The son reports the patient has had a progressive slow decline in memory function and becomes agitated easily over the past year. He lives alone since of 59 years was placed in NH with dementia. Was smonloent during my encounter, minimally active. Active Medications Acetaminophen (Tylenol -) 500 mg PO Q4H PRN PRN Reason: FEVER OR PAIN Lorazepam (Ativan Injection -) 1 mg IVPUSH Q4H PRN PRN Reason: AGITATION Last Admin: 12/02/16 11:13 Dose: 1 mg Memantine (Namenda -) 5 mg PO BID ART Olanzapine (Zyprexa -) 5 mg PO BID ART Physical Exam Vital Signs: Vital Signs Temperature 99 F 12/02/16 00:11 Pulse Rate 92 H 12/02/16 09:00 Respiratory Rate 18 12/02/16 09:00 Blood Pressure 154/64 12/02/16 09:00 O2 Sat by Pulse Oximetry (%) 94 L 12/02/16 09:00 Constitutional: Yes: Well Nourished, Moderate Distress (cries out in pain has he holds the right side of his head. son is able to speak with patient in [place] language with no aphasia. He is disoriented to place and time.) HENT: No: Atraumatic (right sided periorbital edema, eccyhmosis and erythemia noted with EOM full) Respiratory: Yes: Regular Neurological: Yes: Alert, Cran Nerves II-XII Intact. No: Oriented (to person only.), Aphasia, Ataxia, Dysarthria, Facial Droop (No focal motor deficits, purposefully using all extremities. DTR 1/4 with absent ankle reflexes and bilateral upgoing plantar response. Optic disc not visualized with CT neg for acute brain trauma or fx) CBCD WBC 9.3 K/mm3 (4.0-10.0) 12/02/16 05:35 RBC 5.43 M/mm3 (4.00-5.60) 12/02/16 05:35 Hgb 15.5 GM/dL (11.7-16.9) 12/02/16 05:35 Hct 46.3 % (35.4-49) 12/02/16 05:35 MCV 85.3 fl (80-96) 12/02/16 05:35 MCHC 33.6 g/dl (32.0-35.9) 12/02/16 05:35 RDW 15.1 % (11.9-15.9) 12/02/16 05:35 Plt Count 207 K/MM3 (134-434) 12/02/16 05:35 MPV 8.7 fl (7.5-11.1) 12/02/16 05:35 CMP Sodium 140 mmol/L (136-145) 12/02/16 05:35 Potassium 4.0 mmol/L (3.5-5.1) 12/02/16 05:35 Chloride 104 mmol/L (98-107) 12/02/16 05:35 Carbon Dioxide 26 mmol/L (21-32) D 12/02/16 05:35 Anion Gap 10 (8-16) 12/02/16 05:35 BUN 22 mg/dL (7-18) H D 12/02/16 05:35 Creatinine 0.7 mg/dL (0.7-1.3) D 12/02/16 05:35 Creat Clearance w eGFR > 60 (>60) 12/02/16 05:35 Calcium 8.5 mg/dL (8.5-10.1) 12/02/16 05:35 Total Bilirubin 0.9 mg/dL (0.2-1.0) D 12/02/16 05:35 AST 28 U/L (15-37) 12/02/16 05:35 ALT 25 U/L (12-78) 12/02/16 05:35 Alkaline Phosphatase 100 U/L (45-117) 12/02/16 05:35 Total Protein 6.5 g/dl (6.4-8.2) 12/02/16 05:35 Albumin 3.5 g/dl (3.4-5.0) 12/02/16 05:[address] head, facial, and neck reviewed as Above Assessment/Plan 81 yo old who fell and was found outdoors on the steps, previously seen by Dr. Shea. He had fallen and injured the right side of his head and periorbital area. Upon arrival to the ED he was hypothermic and disoriented. There was local trauma to the face and head. CT reported generalized atrophy with ventriculomegaly but no acute trauma or ICH. CT of facial bones and cervical spine was neg for fracture. Remains somnolent and agree with avoiding sedative medications Agree with shelter return once more awake and responsive Would not require MRI brain at this time Fall precautions PT/OT when able
[2016-12-02] MEDS: MEMANTINE HCL 5 MG TABLET (UD) PO SCH ×2 (13:56→20:59)
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
[2016-12-02] MEDS: OLANZapine 5 MG TABLET PO SCH (20:59)
--- NOTE | 2016-12-02 23:59 | PN ---
Progress Note, Physician History of Present Illness: Continues confused and agitated off and on. PO intake adequate as per nursing - Current Medication List Current Medications: Active Medications Acetaminophen (Tylenol -) 500 mg PO Q4H PRN PRN Reason: FEVER OR PAIN Lorazepam (Ativan Injection -) 1 mg IVPUSH Q4H PRN PRN Reason: AGITATION Last Admin: 12/02/16 21:48 Dose: 1 mg Memantine (Namenda -) 5 mg PO BID [facility] Last Admin: 12/02/16 20:59 Dose: 5 mg Olanzapine (Zyprexa -) 5 mg PO BID [facility] Last Admin: 12/02/16 20:59 Dose: 5 mg - Objective Vital Signs: Vital Signs Temperature 99 F 12/02/16 23:44 Pulse Rate 90 12/02/16 23:44 Respiratory Rate 18 12/02/16 23:44 Blood Pressure 126/71 12/02/16 23:44 O2 Sat by Pulse Oximetry (%) 92 L 12/02/16 21:00 Constitutional: Yes: Well Nourished, Calm Eyes: Yes: Conjunctiva Clear, EOM Intact HENT: Yes: WNL Neck: Yes: Supple Cardiovascular: Yes: Regular Rate and Rhythm, S1, S2 Respiratory: Yes: CTA Bilaterally Gastrointestinal: Yes: Normal Bowel Sounds, Soft Genitourinary: Yes: WNL Musculoskeletal: Yes: WNL Extremities: Yes: WNL Edema: No Peripheral Pulses WNL: Yes Integumentary: Yes: WNL Neurological: Yes: Alert, Cran Nerves II-XII Intact ...Motor Strength: WNL Psychiatric: Yes: Alert, Oriented Labs: CBC, BMP 12/02/16 05:35 12/02/16 05:35 INR, PTT INR 1.02 (0.82-1.09) 11/29/16 13:00 - ....Imaging Chest X-ray: Report Reviewed, Image Reviewed EKG: Report Reviewed, Image Reviewed Problem List - Problems (1) Altered mental status Assessment/Plan: He is sleeping better with Seroquel Code(s): R41.82 - ALTERED MENTAL STATUS, UNSPECIFIED Qualifiers: Altered mental status type: unspecified Qualified Code(s): R41.82 - Altered mental status, unspecified (2) Dementia Code(s): F03.90 - UNSPECIFIED DEMENTIA WITHOUT BEHAVIORAL DISTURBANCE Qualifiers: Dementia type: unspecified type Dementia behavioral disturbance: with behavioral disturbance Qualified Code(s): F03.91 - Unspecified dementia with behavioral disturbance; F10.97 - Alcohol use, unspecified with alcohol- induced persisting dementia (3) HTN (hypertension) Code(s): I10 - ESSENTIAL (PRIMARY) HYPERTENSION (4) Head injury Code(s): S09.90XA - UNSPECIFIED INJURY OF HEAD, INITIAL ENCOUNTER Qualifiers: Encounter type: initial encounter Qualified Code(s): S09.90XA - Unspecified injury of head, initial encounter (5) Soft tissue injury Code(s): T14.8 - OTHER INJURY OF UNSPECIFIED BODY REGION Assessment/Plan [facility]
[2016-12-03] MEDS: LORAZEPAM CARPU-JECT 2 MG/ML DISP.SYRIN IVPUSH PRN ×3 (02:44→12:35)
[2016-12-03] MEDS: OLANZapine 5 MG TABLET PO SCH (09:05)
[2016-12-03] MEDS: MEMANTINE HCL 5 MG TABLET (UD) PO SCH (09:05)
--- NOTE | 2016-12-03 10:32 | PN ---
Progress Note (short form) - Note Progress Note: Neurology 81 yo old who fell and was found outdoors on the steps, previously seen by Dr. Shea. He had fallen and injured the right side of his head and periorbital area. Upon arrival to the ED he was hypothermic and disoriented. There was local trauma to the face and head. The head CT reported generalized atrophy with ventriculomegaly but no acute trauma or ICH. CT of facial bones and cervical spine was neg for fracture. Since admission he has become more agitated as medications were adjusted to avoid oversedation in the presence of head trauma. The son reports the patient has had a progressive slow decline in memory function and becomes agitated easily over the past year. He lives alone since of 59 years was placed in NH with dementia. More awake and interactive today. Cooperative with aggitation. Active Medications Acetaminophen (Tylenol -) 500 mg PO Q4H PRN PRN Reason: FEVER OR PAIN Lorazepam (Ativan Injection -) 1 mg IVPUSH Q4H PRN PRN Reason: AGITATION Last Admin: 12/03/16 09:06 Dose: 1 mg Memantine (Namenda -) 5 mg PO BID [facility] Last Admin: 12/03/16 09:05 Dose: 5 mg Olanzapine (Zyprexa -) 5 mg PO BID [facility] Last Admin: 12/03/16 09:05 Dose: 5 mg Physical Exam Vital Signs: Last Vital Signs Temp Pulse Resp BP Pulse Ox 99 F 90 18 126/71 92 L 12/02/16 23:44 12/02/16 23:44 12/02/16 23:44 12/02/16 23:44 12/02/16 21:00 Constitutional: Yes: Well Nourished, Moderate Distress (cries out in pain has he holds the right side of his head. son is able to speak with patient in [place] language with no aphasia. He is disoriented to place and time.) HENT: No: Atraumatic (right sided periorbital edema, eccyhmosis and erythemia noted with EOM full) Respiratory: Yes: Regular Neurological: Yes: Alert, Cran Nerves II-XII Intact. No: Oriented (to person only.), Aphasia, Ataxia, Dysarthria, Facial Droop (No focal motor deficits, purposefully using all extremities. DTR 1/4 with absent ankle reflexes and bilateral upgoing plantar response. Optic disc not visualized with CT neg for acute brain trauma or fx) CBCD WBC 9.3 K/mm3 (4.0-10.0) 12/02/16 05:35 RBC 5.43 M/mm3 (4.00-5.60) 12/02/16 05:35 Hgb 15.5 GM/dL (11.7-16.9) 12/02/16 05:35 Hct 46.3 % (35.4-49) 12/02/16 05:35 MCV 85.3 fl (80-96) 12/02/16 05:35 MCHC 33.6 g/dl (32.0-35.9) 12/02/16 05:35 RDW 15.1 % (11.9-15.9) 12/02/16 05:35 Plt Count 207 K/MM3 (134-434) 12/02/16 05:35 MPV 8.7 fl (7.5-11.1) 12/02/16 05:35 CMP Sodium 140 mmol/L (136-145) 12/02/16 05:35 Potassium 4.0 mmol/L (3.5-5.1) 12/02/16 05:35 Chloride 104 mmol/L (98-107) 12/02/16 05:35 Carbon Dioxide 26 mmol/L (21-32) D 12/02/16 05:35 Anion Gap 10 (8-16) 12/02/16 05:35 BUN 22 mg/dL (7-18) H D 12/02/16 05:35 Creatinine 0.7 mg/dL (0.7-1.3) D 12/02/16 05:35 Creat Clearance w eGFR > 60 (>60) 12/02/16 05:35 Calcium 8.5 mg/dL (8.5-10.1) 12/02/16 05:35 Total Bilirubin 0.9 mg/dL (0.2-1.0) D 12/02/16 05:35 AST 28 U/L (15-37) 12/02/16 05:35 ALT 25 U/L (12-78) 12/02/16 05:35 Alkaline Phosphatase 100 U/L (45-117) 12/02/16 05:35 Total Protein 6.5 g/dl (6.4-8.2) 12/02/16 05:35 Albumin 3.5 g/dl (3.4-5.0) 12/02/16 05:[address] head, facial, and neck reviewed as Above Assessment/Plan 81 yo old who fell and was found outdoors on the steps, previously seen by Dr. Shea. He had fallen and injured the right side of his head and periorbital area. Upon arrival to the ED he was hypothermic and disoriented. There was local trauma to the face and head. CT reported generalized atrophy with ventriculomegaly but no acute trauma or ICH. CT of facial bones and cervical spine was neg for fracture. Remains somnolent and agree with avoiding sedative medications Agree with shelter return once more awake and responsive Would not require MRI brain at this time Fall precautions PT/OT when able
[2016-12-03 11:15] VITALS: BP 114/64; PULSE 84; TEMP 97.4
--- NOTE | 2017-01-02 13:50 | DS ---
Physical Examination Vital Signs: Vital Signs Temperature 97.4 F L 12/03/16 10:00 Pulse Rate 84 12/03/16 10:00 Respiratory Rate 18 12/03/16 10:00 Blood Pressure 114/64 12/03/16 10:00 O2 Sat by Pulse Oximetry (%) 92 L 12/02/16 21:00 Constitutional: Yes: Well Nourished, No Distress, Calm Eyes: Yes: WNL HENT: Yes: WNL Neck: Yes: WNL, Supple Cardiovascular: Yes: Regular Rate and Rhythm, S1, S2 Respiratory: Yes: Regular, CTA Bilaterally Gastrointestinal: Yes: Normal Bowel Sounds Renal/: Yes: WNL Musculoskeletal: Yes: WNL Extremities: Yes: WNL Edema: No Peripheral Pulses WNL: Yes Integumentary: Yes: WNL Wound/Incision: Yes: Clean/Dry Neurological: Yes: Alert, Oriented ...Motor Strength: WNL Psychiatric: Yes: Alert, Oriented Labs: CBC, BMP 12/02/16 05:35 12/02/16 05:35 Discharge Summary Reason For Visit: AMS,INJURY OF HEAD Current Active Problems Dementia (Acute) Dementia with aggressive behavior (Acute) Procedures: Principal: CT scan of Brain Hospital Course: 81 y/o who slipped on ice and fell on concrete steps of his home. Neighbour saw him sitting on the steps bleeding from his forehead and called ambulance. In the ED he was confused with ecchymosis of the forehead and hematoma of the facial bones. His neuro exam was normal.CT scan of brain did not show any bleed. Xrays of facial bones did not show any fractures. He was admitted to hospital for observation but continued to be agitated off and on and was given Haldol. He gradually was able to talk to his family but had to be restrained.He was seen by ,psychiatrist and was started on Zyprexa 5 mg. He was transferred to the care home as requested by his family as he could not be controlled at home. Condition: Guarded - Instructions Disposition: LONG TERM FACILITY - Home Medications Comprehensive Discharge Medication List: Ambulatory Orders Olanzapine [Zyprexa -] 5 mg PO BID tablet 12/03/16 Acetaminophen [Tylenol] 650 mg PO Q4H PRN 12/04/16 Memantine HCl [Namenda -] 10 mg PO BID 12/04/16 Lorazepam [Ativan] 1 mg PO DAILY #30 tablet MDD 1 12/12/16 Lorazepam [Ativan] 1.5 mg PO HS #45 tablet MDD 1.5 12/12/16 Memantine HCl [Namenda -] 5 mg PO BID tab 12/12/16 Olanzapine [Zyprexa -] 5 mg PO BID tablet 12/12/16
== END 2016-12-03 13:31 | DRG 914 ==
LOC: JER 12:39 → JERBED 14:42 → J4W 17:22 → J5S 11-30 20:41
PROVIDERS: ADMIT Internal Medicine Hematology & Oncology; ATTEND Internal Medicine Hematology & Oncology
DX: S09.8XXA Other specified injuries of head, initial encounter (principal); S05.8X9A Other injuries of unspecified eye and orbit, initial encounter; I10 Essential (primary) hypertension; F03.90 Unspecified dementia, unspecified severity, without behavioral disturbance, psychotic disturbance, mood disturbance, and anxiety; F10.10 Alcohol abuse, uncomplicated; T14.8 Other injury of unspecified body region; R68.0 Hypothermia, not associated with low environmental temperature; R26.81 Unsteadiness on feet; W10.8XXA Fall (on) (from) other stairs and steps, initial encounter; Y93.89 Activity, other specified; Y92.098 Other place in other non-institutional residence as the place of occurrence of the external cause
CPT/HCPCS: 36415; 70450-TC; 70486-TC; 71010-TC; 72125-TC; 80053; 80307; 82550; 82553; 83735; 84443; 84484; 85025; 85610; 86850; 86900; 86901; 93005; 93010; 93306-TC; 97116-GP; 97162-PG; 99285-25; G0008; Q2037

== ENCOUNTER 2016-12-04 02:26 | Inpatient (IN) | payer OTHER ==
[2016-12-04 02:37] VITALS: BMI 19.8
[2016-12-04] MEDS ORDERED: LORAZEPAM CARPU-JECT 2 MG/ML DISP.SYRIN IM ONE (02:46)
[2016-12-04] MEDS ORDERED: LORAZEPAM CARPU-JECT 2 MG/ML DISP.SYRIN ONE ×3 (02:47→10:50)
--- NOTE | 2016-12-04 02:47 | PDOC ---
History of Present Illness - General History Source: Intermediate Records Exam Limitations: Dementia - History of Present Illness Initial Comments: 12/04/16 03:57 The patient is a 81 year old male with significant past medical history of dementia, hypertension, and hyperlipidemia who presents to the ED [facility] from [facility] for being combative. Patient is a poor historian due to dementia. No other history was provided by the [facility] other than patient being combative. Allergies: NKDA Social History: No alcohol, tobacco, or drug use reported. Past Surgical History: cholecystectomy PCP: Dr. Araceli Valdes 12/04/16 06:26 <Rashida Mead - Last Filed: 12/04/16 06:26> - General History Source: Patient <Jamshid Marcos - Last Filed: 12/04/16 19:17> - General Chief Complaint: Psychiatric Stated Complaint: AMS Time Seen by Provider: 12/04/16 02:44 Past History <Rashida Mead - Last Filed: 12/04/16 06:26> - Past Medical History Anemia: No Asthma: No Cancer: No Cardiac Disorders: No CVA: No COPD: No CHF: No Dementia: Yes (aggressive behavior) Diabetes: No GI Disorders: No Disorders: No HTN: Yes Hypercholesterolemia: Yes Liver Disease: No Seizures: No Thyroid Disease: No - Surgical History Abdominal Surgery: No Appendectomy: No Cardiac Surgery: No Cholecystectomy: Yes Lung Surgery: No Neurologic Surgery: No Orthopedic Surgery: No - Psycho/Social/Smoking Cessation Hx Suicidal Ideation: No Smoking Status: No Smoking History: Never smoked Have you smoked in the past 12 months: No Number of Cigarettes Smoked Daily: 0 Hx Alcohol Use: Yes Drug/Substance Use Hx: No Substance Use Type: None Hx Substance Use Treatment: No <Jamshid Marcos - Last Filed: 12/04/16 19:17> - Past Medical History Allergies/Adverse Reactions: Allergies Allergy/AdvReac Type Severity Reaction Status Date / Time No Known Allergies Allergy Verified 11/29/16 13:26 Home Medications: Ambulatory Orders Olanzapine [Zyprexa -] 5 mg PO BID tablet 12/03/16 Acetaminophen [Tylenol] 650 mg PO Q4H PRN 12/04/16 Memantine HCl [Namenda -] 10 mg PO BID 12/04/16 Review of Systems - Review of Systems Able to Perform ROS?: No Comments:: 12/04/16 03:57 Unable to obtain secondary to dementia. <Rashida Mead - Last Filed: 12/04/16 06:26> *Physical Exam - Vital Signs Last Vital Signs Temp Pulse Resp BP Pulse Ox 97.9 F 80 20 128/77 98 12/04/16 02:34 12/04/16 02:34 12/04/16 02:34 12/04/16 02:34 12/04/16 02:34 - Physical Exam Comments: 12/04/16 03:57 GENERAL: Well developed, well nourished. Awake and alert. No acute distress. HEENT: Normocephalic. PERRLA, EOMI. Large healing abrasion across the entire forehead. Periorbital swelling bilaterally. Bilateral scleral injection/hemorrhage, right greater than left. No hemotympanum. Swelling over the bridge of the nose. Moist mucous membranes. Oropharynx is clear. NECK: Supple. Full ROM. No JVD. Carotid pulses 2+ and symmetric, without bruits. No thyromegaly. No lymphadenopathy. CARDIOVASCULAR: Regular rate and rhythm. No murmurs, rubs, or gallops. Distal pulses are 2+ and symmetric. PULMONARY: No evidence of respiratory distress. Lungs clear to auscultation bilaterally. No wheezing, rales or rhonchi. ABDOMINAL: Soft. Non-tender. Non-distended. No rebound or guarding. No organomegaly. Normoactive bowel sounds. MUSCULOSKELETAL Normal range of motion at all joints. No gross bony deformities or tenderness. No CVA tenderness. EXTREMITIES: No cyanosis. No clubbing. No edema. No calf tenderness. SKIN: Warm and dry. Normal capillary refill. No rashes. No jaundice. NEUROLOGICAL: Awake and alert. Not answering questions. No gross motor deficits. No gross neurological deficits. <Rashida Mead - Last Filed: 12/04/16 06:26> - Vital Signs Last Vital Signs Temp Pulse Resp BP Pulse Ox 97.9 F 80 20 128/77 98 12/04/16 02:34 12/04/16 02:34 12/04/16 02:34 12/04/16 02:34 12/04/16 02:34 <Jamshid Marcos - Last Filed: 12/04/16 19:17> ED Treatment Course - LABORATORY CBC & Chemistry Diagram: 12/04/16 02:50 12/04/16 02:50 - ADDITIONAL ORDERS Additional order review: Laboratory Results 12/04/16 12/04/16 12/04/16 03:00 02:50 02:50 INR Sodium Potassium Chloride Carbon Dioxide Anion Gap BUN Creatinine Creat Clearance w eGFR Random Glucose Lactic Acid 1.401 Calcium Magnesium Total Bilirubin AST ALT Alkaline Phosphatase Creatine Kinase CK-MB (CK-2) Rel Index Cancelled Troponin I Total Protein Albumin Urine Color Jennifer Urine Appearance Clear Urine pH 5.0 Ur Specific [place] 1.030 Urine Protein Negative Urine Glucose (UA) 1+ H Urine Ketones Negative Urine Blood 2+ H Urine Nitrite Negative Urine Bilirubin Negative Urine Urobilinogen 4.0 e.u/dl Ur Leukocyte Esterase Negative Urine RBC 142 Urine WBC 3 Hyaline Casts 1 Urine Mucus Moderate 12/04/16 12/04/16 02:50 02:50 INR 1.07 Sodium 141 Potassium 3.8 Chloride 105 Carbon Dioxide 25 Anion Gap 11 BUN 28 H D Creatinine 0.7 Creat Clearance w eGFR > 60 Random Glucose 114 H D Lactic Acid Calcium 8.3 L Magnesium 2.0 Total Bilirubin 0.7 D AST 49 H D ALT 34 D Alkaline Phosphatase 91 Creatine Kinase 893 H D CK-MB (CK-2) Rel Index Troponin I < 0.02 Total Protein 6.2 L Albumin 3.2 L Urine Color Urine Appearance Urine pH Ur Specific [place] Urine Protein Urine Glucose (UA) Urine Ketones Urine Blood Urine Nitrite Urine Bilirubin Urine Urobilinogen Ur Leukocyte Esterase Urine RBC Urine WBC Hyaline Casts Urine Mucus 12/04/16 02:50 RBC 5.12 MCV 85.1 MCHC 33.9 RDW 14.8 MPV 9.1 Neutrophils % 63.9 Lymphocytes % 26.4 Monocytes % 7.9 Eosinophils % 1.0 D Basophils % 0.8 - RADIOLOGY Radiograph Interpretation: 12/04/16 04:21 EXAM: CT Maxillofacial without contrast. Reviewed by Imaging patent prosecution paralegal: No gross fracture, assessment motion limited. TMJ alignment is anatomic. Impression: as above. - Medications Given in the ED: ED Medications Discontinued Medications Generic Name Dose Route Start Last Admin Trade Name Freq PRN Reason Stop Dose Admin Lorazepam 2 mg 12/04/16 02:46 12/04/16 02:49 Ativan Injection - IM 12/04/16 02:47 2 mg ONCE ONE Administration <Rashida Mead - Last Filed: 12/04/16 06:26> - LABORATORY CBC & Chemistry Diagram: 12/04/16 02:50 12/04/16 02:50 <Jamshid Marcos - Last Filed: 12/04/16 19:17> Medical Decision Making - Medical Decision Making 12/04/16 06:[address] Araceli Valdes (via answering service) at 6:05, 6:21 Awaiting call back Patient's case discussed with Dr. Valdes at 6:22 <Rashida Mead - Last Filed: 12/04/16 06:26> *DC/Admit/Observation/Transfer - Attestations Scribe Attestion: 12/04/16 03:58 Documentation prepared by Rashida Mead, acting as medical technologist generalist for Jamshid Marcos MD <Rashida Mead - Last Filed: 12/04/16 06:26> <Jamshid Marcos - Last Filed: 12/04/16 19:17> Diagnosis at time of Disposition: Dementia - Referrals
[2016-12-04 03:12] LABS: BASOPHIL 0.8 % (0-2.0); MCH 28.9 pg (25.7-33.7); MCHC 33.9 g/dl (32.0-35.9); MEAN CELL VOLUME 85.1 fl (80-96); MEAN PLT VOLUME 9.1 fl (7.5-11.1); NEUTROPHILS 63.9 % (42.8-82.8); PLATELET COUNT 211 K/MM3 (134-434); RDW 14.8 % (11.9-15.9); WHITE BLOOD COUNT 6.5 K/mm3 (4.0-10.0)
[2016-12-04 03:17] LABS: URINE APPEARANCE CLEAR; URINE BILIRUBIN NEGATIVE (NEGATIVE); URINE COLOR AMBER; URINE GLUCOSE (UA) 1+ (NEGATIVE); URINE KETONE NEGATIVE (NEGATIVE); URINE LEUK ESTERASE NEGATIVE (NEGATIVE); URINE NITRITE NEGATIVE (NEGATIVE); URINE PROTEIN NEGATIVE (NEGATIVE); URINE UROBILINOGEN 4.0 E.U/dl E.U./dl (0.2-1.0)
[2016-12-04 03:18] LABS: URINE BLOOD 2+ (NEGATIVE)
[2016-12-04] MEDS: SODIUM CHLORIDE 1,000 ML IV SCH ×2 (03:24→12:28)
[2016-12-04 03:27] LABS: INR 1.07 (0.82-1.09); PROTHROMBIN TIME (PATIENT) 11.8 SEC (9.98-11.88)
[2016-12-04 03:27] LABS: URINE HYALINE CAST 1 /lpf; URINE MUCUS MODERATE; URINE RBC 142 /hpf (0-3); URINE WBC 3 /hpf (3-5)
[2016-12-04 03:39] LABS: ALBUMIN 3.2 g/dl (3.4-5.0); ANION GAP 11 (8-16); BILIRUBIN,TOTAL 0.7 mg/dL (0.2-1.0); CALCIUM 8.3 mg/dL (8.5-10.1); CO2 25 mmol/L (21-32); CREATININE 0.7 mg/dL (0.7-1.3); GLUCOSE,RANDOM 114 mg/dL (74-106); SGOT/AST 49 U/L (15-37); SGPT/ALT 34 U/L (12-78); TOT PROT 6.2 g/dl (6.4-8.2)
[2016-12-04 03:41] LABS: ALK PHOS 91 U/L (45-117); TROPONIN I < 0.02 ng/ml (0.00-0.05)
[2016-12-04] MEDS ORDERED: HALOPERIDOL LACTATE 5 MG/ML IM ONE ×2 (07:20→15:00)
--- NOTE | 2016-12-04 07:41 | PDOC ---
*Physical Exam - Vital Signs Last Vital Signs Temp Pulse Resp BP Pulse Ox 97.9 F 71 16 126/80 95 12/04/16 02:34 12/04/16 04:24 12/04/16 04:24 12/04/16 04:24 12/04/16 04:24 ED Treatment Course - LABORATORY CBC & Chemistry Diagram: 12/04/16 02:50 12/04/16 02:50 - ADDITIONAL ORDERS Additional order review: Laboratory Results 12/04/16 12/04/16 12/04/16 03:00 02:50 02:50 INR Sodium Potassium Chloride Carbon Dioxide Anion Gap BUN Creatinine Creat Clearance w eGFR Random Glucose Lactic Acid 1.401 Calcium Magnesium Total Bilirubin AST ALT Alkaline Phosphatase Creatine Kinase Creatine Kinase Index CK-MB (CK-2) CK-MB (CK-2) Rel Index Cancelled Troponin I Total Protein Albumin Urine Color Jennifer Urine Appearance Clear Urine pH 5.0 Ur Specific [place] 1.030 Urine Protein Negative Urine Glucose (UA) 1+ H Urine Ketones Negative Urine Blood 2+ H Urine Nitrite Negative Urine Bilirubin Negative Urine Urobilinogen 4.0 e.u/dl Ur Leukocyte Esterase Negative Urine RBC 142 Urine WBC 3 Hyaline Casts 1 Urine Mucus Moderate 12/04/16 12/04/16 02:50 02:50 INR 1.07 Sodium 141 Potassium 3.8 Chloride 105 Carbon Dioxide 25 Anion Gap 11 BUN 28 H D Creatinine 0.7 Creat Clearance w eGFR > 60 Random Glucose 114 H D Lactic Acid Calcium 8.3 L Magnesium 2.0 Total Bilirubin 0.7 D AST 49 H D ALT 34 D Alkaline Phosphatase 91 Creatine Kinase 893 H D Creatine Kinase Index 1.6 CK-MB (CK-2) 14.050 H CK-MB (CK-2) Rel Index Troponin I < 0.02 Total Protein 6.2 L Albumin 3.2 L Urine Color Urine Appearance Urine pH Ur Specific [place] Urine Protein Urine Glucose (UA) Urine Ketones Urine Blood Urine Nitrite Urine Bilirubin Urine Urobilinogen Ur Leukocyte Esterase Urine RBC Urine WBC Hyaline Casts Urine Mucus 12/04/16 02:50 RBC 5.12 MCV 85.1 MCHC 33.9 RDW 14.8 MPV 9.1 Neutrophils % 63.9 Lymphocytes % 26.4 Monocytes % 7.9 Eosinophils % 1.0 D Basophils % 0.8 - RADIOLOGY Radiology Studies Ordered: Category Date Time Status HEAD CT WITHOUT CONTRAST [CT] Stat CT Scan 12/04/16 07:21 Ordered - Medications Given in the ED: ED Medications Discontinued Medications Generic Name Dose Route Start Last Admin Trade Name Margarita PRN Reason Stop Dose Admin Lorazepam 2 mg 12/04/16 02:46 12/04/16 02:49 Ativan Injection - IM 12/04/16 02:47 2 mg ONCE ONE Administration Medical Decision Making - Medical Decision Making 12/04/16 07:40 Received signout on this 81-year-old male from [facility] with aggressive behavior who was difficult to control, workup was initially unremarkable, plan was to admit to hospital. Found patient on floor this morning, he was alert but at baseline are mentioned , on his hands and knees without evidence of acute injury. Full trauma exam was unchanged from prior, will repeat head CT empirically. Discussed with Dr. Sr, who knows the patient well, who wants patient readmitted to his service. *DC/Admit/Observation/Transfer Diagnosis at time of Disposition: Dementia Qualifiers: Dementia type: unspecified type Dementia behavioral disturbance: with behavioral disturbance Qualified Code(s): F03.91 - Unspecified dementia with behavioral disturbance - Discharge Dispostion Condition at time of disposition: Fair Admit: Yes - Referrals Referrals: Araceli Valdes MD [Primary Care Provider] - - Patient Instructions - Post Discharge Activity
[2016-12-04] MEDS ORDERED: HALOPERIDOL LACTATE 5 MG/ML ONE (07:45)
[2016-12-04] MEDS ORDERED: LORAZEPAM CARPU-JECT 2 MG/ML DISP.SYRIN IVPUSH ONE ×2 (08:08→10:47)
--- NOTE | 2016-12-04 12:33 | EKG ---
Test Reason : Blood Pressure : / mmHG Vent. Rate : 080 BPM Atrial Rate : 080 BPM P-R Int : 200 ms QRS Dur : 084 ms QT Int : 380 ms P-R-T Axes : 012 064 050 degrees QTc Int : 438 ms SINUS RHYTHM WITH OCCASIONAL PREMATURE VENTRICULAR COMPLEXES OTHERWISE NORMAL ECG WHEN COMPARED WITH ECG OF 30-NOV-2016 09:23, PREMATURE VENTRICULAR COMPLEXES ARE NOW PRESENT ID INTERVAL HAS DECREASED Confirmed by SHAYE DAVIS, AIXA ([id number]) on 12/04/2016 12:33:20 PM Referred By: Confirmed By:AIXA CR MD
[2016-12-04] MEDS ORDERED: LORAZEPAM CARPU-JECT 2 MG/ML DISP.SYRIN IVPUSH PRN (20:14)
[2016-12-04] MEDS ORDERED: QUEtiapine FUMARATE 50 MG TABLET PO SCH (22:00)
[2016-12-04] MEDS: MEMANTINE HCL 5 MG TABLET (UD) PO SCH (22:59)
[2016-12-05] MEDS: LORAZEPAM CARPU-JECT 2 MG/ML DISP.SYRIN IM PRN ×3 (05:50→22:45)
[2016-12-05] MEDS: MEMANTINE HCL 5 MG TABLET (UD) PO SCH ×2 (09:47→21:33)
[2016-12-05] MEDS ORDERED: OLANZapine 2.5 MG TABLET PO SCH (10:00)
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
[2016-12-05] MEDS ORDERED: ALPRAZolam 0.25 MG TABLET PO SCH (14:00)
--- NOTE | 2016-12-05 14:24 | CON.PSY ---
Psychiatry Consult Chief Complaint: Patient readmitted from [facility] for physically aggressive behaviour Symptoms: reports: Inability to Control Temper, Impulsivity - Previous Psychiatric Treatment Outpatient: None Inpatient: None - Previous Substance Abuse Treatment Outpatient: None Inpatient: None - Current Medications Current Medications: Active Medications Lorazepam (Ativan Injection -) 1 mg IM Q6H PRN PRN Reason: ANXIETY Last Admin: 12/05/16 05:50 Dose: 1 mg Memantine (Namenda -) 5 mg PO BID ART Last Admin: 12/05/16 09:47 Dose: 5 mg - Allergies Allergies: Allergies Allergy/AdvReac Type Severity Reaction Status Date / Time No Known Allergies Allergy Verified 11/29/16 13:26 - Current Living Status Usual Living Arrangement: [facility] - Current Mental Status Evaluation Appearance: Disheveled Attitude: Guarded - Affect Affect: Constrictive Appropriateness: Not Appropriate - Mood Mood: Irritable - Speech/Language Expressive: Delayed - Psychomotor Activity Psychomotor Activity: Hyperactive - Thought Process Thought Process: Circumstantial - Thought Content Hallucinations: Absent Delusions: Absent - Self Perception Self Perception: Depersonalization - Cognition Attention: Diminished Orientation: Time Memory, Immediate Recall: Impaired Memory, Short Term: 1/3 Memory, Remote with Promptin/3 - Concentration Serial Sevens Intact: No Simple Calculations Intact: No - Abstraction Proverb Interpretation: Impaired Judgement: Moderately Impaired - Insight Insight: Impaired - Impulse Control Impulse Control: Moderately Impaired - Suicidal Ideation Suicidal Ideation: No - Homicidal Ideation Homicidal Ideation: No Assessment/Plan 1)Stop Xanax 2) increase Zyprexa 5mg po bid. 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 There is no Psych unit to manage this Dementia related behaviours. Hopefully Zyprexa can contain this behaviour. xanax will make him more diinhibited.
[2016-12-05] MEDS ORDERED: PNEUMOC 13-VAL CONJ-DIP CRM/PF 0.5 ML DISP.SYRIN IM ONE (16:08)
[2016-12-05] MEDS: OLANZapine 5 MG TABLET PO SCH (21:33)
[2016-12-05] MEDS: ALPRAZolam 0.25 MG TABLET PO SCH (23:17)
[2016-12-06] MEDS: ALPRAZolam 0.25 MG TABLET PO SCH ×3 (06:26→21:27)
[2016-12-06] MEDS: LORAZEPAM CARPU-JECT 2 MG/ML DISP.SYRIN IM PRN ×3 (09:51→23:01)
[2016-12-06] MEDS: OLANZapine 5 MG TABLET PO SCH ×2 (09:52→21:27)
[2016-12-06] MEDS: MEMANTINE HCL 5 MG TABLET (UD) PO SCH ×2 (09:52→21:27)
[2016-12-06] MEDS ORDERED: LORAZEPAM CARPU-JECT 2 MG/ML DISP.SYRIN IM STA (14:37)
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
[2016-12-07] MEDS: ALPRAZolam 0.25 MG TABLET PO SCH ×3 (06:21→22:17)
[2016-12-07] MEDS: OLANZapine 5 MG TABLET PO SCH ×2 (09:08→22:18)
[2016-12-07] MEDS: MEMANTINE HCL 5 MG TABLET (UD) PO SCH ×2 (09:08→22:18)
--- NOTE | 2016-12-07 13:12 | PN ---
Progress Note, Physician History of Present Illness: Continues to be very agitated off and on, hitting nurses and kicking. PO intake adequate. - Current Medication List Current Medications: Active Medications Acetaminophen (Tylenol -) 500 mg PO Q6H PRN PRN Reason: FEVER OR PAIN Alprazolam (Xanax -) 0.25 mg PO TID [facility] Last Admin: 12/07/16 06:21 Dose: 0.25 mg Lorazepam (Ativan Injection -) 1 mg IM Q4H PRN PRN Reason: ANXIETY Last Admin: 12/06/16 23:01 Dose: 1 mg Memantine (Namenda -) 5 mg PO BID [facility] Last Admin: 12/07/16 09:08 Dose: 5 mg Olanzapine (Zyprexa -) 5 mg PO BID [facility] Last Admin: 12/07/16 09:08 Dose: 5 mg - Objective Vital Signs: Vital Signs Temperature 98 F 12/07/16 09:13 Pulse Rate 90 12/07/16 09:05 Respiratory Rate 20 12/07/16 09:05 Blood Pressure 118/69 12/07/16 09:05 O2 Sat by Pulse Oximetry (%) 91 L 12/06/16 21:00 Constitutional: Yes: Well Nourished, Anxious Eyes: Yes: WNL HENT: Yes: WNL Neck: Yes: WNL, Supple Cardiovascular: Yes: Regular Rate and Rhythm, S1, S2 Respiratory: Yes: Regular, CTA Bilaterally Gastrointestinal: Yes: Normal Bowel Sounds, Soft Genitourinary: Yes: WNL Musculoskeletal: Yes: WNL Extremities: Yes: WNL Edema: No Peripheral Pulses WNL: Yes Integumentary: Yes: WNL Wound/Incision: Yes: Clean/Dry Neurological: Yes: Alert, Confusion ...Motor Strength: WNL Psychiatric: Yes: Alert, Agitated Labs: INR, PTT INR 1.07 (0.82-1.09) 12/04/16 02:50 Problem List - Problems (1) Dementia Assessment/Plan: continues agitated off and on, continues on ZYPREXA Code(s): F03.90 - UNSPECIFIED DEMENTIA WITHOUT BEHAVIORAL DISTURBANCE Qualifiers: Dementia type: unspecified type Dementia behavioral disturbance: with behavioral disturbance Qualified Code(s): F03.91 - Unspecified dementia with behavioral disturbance; F10.97 - Alcohol use, unspecified with alcohol- induced persisting dementia (2) Head injury Assessment/Plan: Hematomas have resolved Code(s): S09.90XA - UNSPECIFIED INJURY OF HEAD, INITIAL ENCOUNTER Qualifiers: Encounter type: initial encounter Qualified Code(s): S09.90XA - Unspecified injury of head, initial encounter (3) Soft tissue injury Code(s): T14.8 - OTHER INJURY OF UNSPECIFIED BODY REGION (4) Dementia with aggressive behavior Code(s): F03.91 - UNSPECIFIED DEMENTIA WITH BEHAVIORAL DISTURBANCE Assessment/Plan Continues to be agitated off and on and has to be restrained at all times due to danger to himself and to the nursing staff. Son is here in trying to convince him not to hit nurses and to improve his behaviour. Have requested that family members visit him daily.
[2016-12-07] MEDS: ACETAMINOPHEN 500 MG TABLET (FP) PO PRN ×2 (13:39→20:37)
[2016-12-07] MEDS: LORAZEPAM CARPU-JECT 2 MG/ML DISP.SYRIN IM PRN (18:40)
[2016-12-08] MEDS: LORAZEPAM CARPU-JECT 2 MG/ML DISP.SYRIN IM PRN (00:03)
[2016-12-08] MEDS: ALPRAZolam 0.25 MG TABLET PO SCH ×2 (06:23→13:36)
[2016-12-08] MEDS: MEMANTINE HCL 5 MG TABLET (UD) PO SCH ×2 (10:30→22:26)
[2016-12-08] MEDS: OLANZapine 5 MG TABLET PO SCH ×2 (10:30→22:26)
[2016-12-08] MEDS: ACETAMINOPHEN 500 MG TABLET (FP) PO PRN (13:29)
[2016-12-08] MEDS ORDERED: LORazepam 0.5 MG TABLET PO PRN (16:24)
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
[2016-12-08] MEDS: ACETAMINOPHEN 325 MG TABLET (FP) PO PRN (22:26)
[2016-12-08] MEDS: LORazepam 0.5 MG TABLET PO SCH (22:26)
[2016-12-09 08:43] LABS: BASOPHIL 0.4 % (0-2.0); EOSINOPHIL 0.3 % (0-4.5); MCH 28.4 pg (25.7-33.7); MEAN PLT VOLUME 8.9 fl (7.5-11.1); NEUTROPHILS 83.8 % (42.8-82.8); PLATELET COUNT 205 K/MM3 (134-434); RDW 14.9 % (11.9-15.9); WHITE BLOOD COUNT 10.4 K/mm3 (4.0-10.0)
[2016-12-09 09:42] LABS: ANION GAP 10 (8-16); BILIRUBIN,TOTAL 0.6 mg/dL (0.2-1.0); CALCIUM 8.2 mg/dL (8.5-10.1); CO2 25 mmol/L (21-32); CREATININE 0.9 mg/dL (0.7-1.3); GLUCOSE,RANDOM 80 mg/dL (74-106); SGOT/AST 31 U/L (15-37); SGPT/ALT 44 U/L (12-78); TOT PROT 6.1 g/dl (6.4-8.2)
[2016-12-09 09:43] LABS: ALK PHOS 96 U/L (45-117)
[2016-12-09] MEDS: OLANZapine 5 MG TABLET PO SCH ×2 (09:57→21:38)
[2016-12-09] MEDS: LORazepam 0.5 MG TABLET PO SCH ×2 (09:57→21:38)
[2016-12-09] MEDS: MEMANTINE HCL 5 MG TABLET (UD) PO SCH ×2 (09:58→21:38)
[2016-12-09] MEDS: ACETAMINOPHEN 325 MG TABLET (FP) PO PRN (10:03)
--- NOTE | 2016-12-09 16:16 | PN ---
Progress Note, Physician History of Present Illness: Has been more cooperative with Zyprexa and Ativan, Last night did not require any extra tranquilizer. Promises not to hit nursing and cooperate - Current Medication List Current Medications: Active Medications Acetaminophen (Tylenol -) 650 mg PO Q4H PRN PRN Reason: FEVER OR PAIN Last Admin: 12/09/16 10:03 Dose: 650 mg Lorazepam (Ativan Injection -) 0.5 mg IM Q6H PRN PRN Reason: ANXIETY Lorazepam (Ativan -) 0.5 mg PO BID [facility] Last Admin: 12/09/16 09:57 Dose: 0.5 mg Memantine (Namenda -) 5 mg PO BID [facility] Last Admin: 12/09/16 09:58 Dose: 5 mg Olanzapine (Zyprexa -) 5 mg PO BID [facility] Last Admin: 12/09/16 09:57 Dose: 5 mg - Objective Vital Signs: Vital Signs Temperature 97.4 F L 12/09/16 14:53 Pulse Rate 88 12/09/16 14:53 Respiratory Rate 20 12/09/16 14:53 Blood Pressure 120/72 12/09/16 14:53 O2 Sat by Pulse Oximetry (%) 95 12/09/16 09:00 Constitutional: Yes: No Distress, Calm Eyes: Yes: Conjunctiva Clear, EOM Intact HENT: Yes: Atraumatic, Normocephalic Neck: Yes: Supple Cardiovascular: Yes: Regular Rate and Rhythm, S1, S2 Respiratory: Yes: Regular, CTA Bilaterally Gastrointestinal: Yes: Normal Bowel Sounds, Soft Genitourinary: Yes: WNL Musculoskeletal: Yes: WNL Extremities: Yes: WNL Edema: No Peripheral Pulses WNL: Yes Integumentary: Yes: WNL Neurological: Yes: Alert, Oriented, Cran Nerves II-XII Intact ...Motor Strength: WNL Psychiatric: Yes: Alert, Oriented Labs: CBC, BMP 12/09/16 08:00 12/09/16 08:00 INR, PTT INR 1.07 (0.82-1.09) 12/04/16 02:50 Problem List - Problems (1) Dementia Assessment/Plan: Agitation controlled with Ativan and Zyprexa Code(s): F03.90 - UNSPECIFIED DEMENTIA WITHOUT BEHAVIORAL DISTURBANCE Qualifiers: Dementia type: unspecified type Dementia behavioral disturbance: with behavioral disturbance Qualified Code(s): F03.91 - Unspecified dementia with behavioral disturbance; F10.97 - Alcohol use, unspecified with alcohol- induced persisting dementia (2) Head injury Code(s): S09.90XA - UNSPECIFIED INJURY OF HEAD, INITIAL ENCOUNTER Qualifiers: Encounter type: initial encounter Qualified Code(s): S09.90XA - Unspecified injury of head, initial encounter (3) Soft tissue injury Code(s): T14.8 - OTHER INJURY OF UNSPECIFIED BODY REGION (4) Dementia with aggressive behavior Code(s): F03.91 - UNSPECIFIED DEMENTIA WITH BEHAVIORAL DISTURBANCE Assessment/Plan Will ask social service for placement Continue Zyprexa and Ativan PO. Ativan IM for agitation as he responds well to the latter.
[2016-12-09] MEDS: LORAZEPAM CARPU-JECT 2 MG/ML DISP.SYRIN IM PRN (23:01)
[2016-12-10] MEDS: OLANZapine 5 MG TABLET PO SCH ×2 (10:26→21:40)
[2016-12-10] MEDS: LORazepam 0.5 MG TABLET PO SCH (10:26)
[2016-12-10] MEDS: MEMANTINE HCL 5 MG TABLET (UD) PO SCH ×2 (10:26→21:40)
[2016-12-10] MEDS: LORAZEPAM CARPU-JECT 2 MG/ML DISP.SYRIN IM PRN (17:30)
--- NOTE | 2016-12-10 18:05 | PN ---
Progress Note, Physician History of Present Illness: continues to have episodes of agitation in spite of 0.5 mg of Ativan and Zyprexa - Current Medication List Current Medications: Active Medications Acetaminophen (Tylenol -) 650 mg PO Q4H PRN PRN Reason: FEVER OR PAIN Last Admin: 12/09/16 10:03 Dose: 650 mg Lorazepam (Ativan Injection -) 0.5 mg IM Q6H PRN PRN Reason: ANXIETY Last Admin: 12/10/16 17:30 Dose: 0.5 mg Memantine (Namenda -) 5 mg PO BID [facility] Last Admin: 12/10/16 10:26 Dose: 5 mg Olanzapine (Zyprexa -) 5 mg PO BID [facility] Last Admin: 12/10/16 10:26 Dose: 5 mg - Objective Vital Signs: Vital Signs Temperature 98.4 F 12/10/16 15:36 Pulse Rate 77 12/10/16 15:36 Respiratory Rate 18 12/10/16 15:36 Blood Pressure 117/54 12/10/16 15:36 O2 Sat by Pulse Oximetry (%) 92 L 12/10/16 09:00 Constitutional: Yes: No Distress, Calm Eyes: Yes: Conjunctiva Clear, EOM Intact HENT: Yes: WNL Neck: Yes: Supple Cardiovascular: Yes: Regular Rate and Rhythm, S1, S2 Respiratory: Yes: Regular, CTA Bilaterally Gastrointestinal: Yes: Normal Bowel Sounds, Soft Genitourinary: Yes: WNL Musculoskeletal: Yes: WNL Extremities: Yes: WNL Edema: No Peripheral Pulses WNL: Yes Integumentary: Yes: WNL Neurological: Yes: Alert, Cran Nerves II-XII Intact ...Motor Strength: WNL Psychiatric: Yes: Alert, Agitated Labs: CBC, BMP 12/09/16 08:00 12/09/16 08:00 INR, PTT INR 1.07 (0.82-1.09) 12/04/16 02:50 Problem List - Problems (1) Dementia Assessment/Plan: Continues to have episodes of being agitated Code(s): F03.90 - UNSPECIFIED DEMENTIA WITHOUT BEHAVIORAL DISTURBANCE Qualifiers: Dementia type: unspecified type Dementia behavioral disturbance: with behavioral disturbance Qualified Code(s): F03.91 - Unspecified dementia with behavioral disturbance; F10.97 - Alcohol use, unspecified with alcohol- induced persisting dementia (2) Head injury Code(s): S09.90XA - UNSPECIFIED INJURY OF HEAD, INITIAL ENCOUNTER Qualifiers: Encounter type: initial encounter Qualified Code(s): S09.90XA - Unspecified injury of head, initial encounter (3) Soft tissue injury Code(s): T14.8 - OTHER INJURY OF UNSPECIFIED BODY REGION (4) Dementia with aggressive behavior Code(s): F03.91 - UNSPECIFIED DEMENTIA WITH BEHAVIORAL DISTURBANCE Assessment/Plan Continues to have episodes of agitation requiring IM Ativan which calms him down and becomes more cooperative. Will increase the HS dose to 1.5mg and observe.
[2016-12-10] MEDS: LORazepam 1 MG TABLET PO SCH (21:38)
[2016-12-10] MEDS ORDERED: LORazepam 1 MG TABLET PO SCH (22:00)
[2016-12-11] MEDS: OLANZapine 5 MG TABLET PO SCH ×2 (09:48→22:17)
[2016-12-11] MEDS: LORazepam 0.5 MG TABLET PO SCH (09:48)
[2016-12-11] MEDS: MEMANTINE HCL 5 MG TABLET (UD) PO SCH ×2 (09:48→22:17)
[2016-12-11] MEDS ORDERED: LORazepam 0.5 MG TABLET PO SCH (10:00)
[2016-12-11] MEDS: LORAZEPAM CARPU-JECT 2 MG/ML DISP.SYRIN IM PRN ×2 (15:10→23:20)
--- NOTE | 2016-12-11 20:30 | PN ---
Progress Note, Physician History of Present Illness: As per nursing behaved much better today and has been without a ana laura all day. Denies any headache, chest pain or SOB - Current Medication List Current Medications: Active Medications Acetaminophen (Tylenol -) 650 mg PO Q4H PRN PRN Reason: FEVER OR PAIN Last Admin: 12/09/16 10:03 Dose: 650 mg Lorazepam (Ativan Injection -) 0.5 mg IM Q6H PRN PRN Reason: ANXIETY Last Admin: 12/11/16 15:10 Dose: 0.5 mg Lorazepam (Ativan -) 1 mg PO DAILY [facility] Last Admin: 12/11/16 09:48 Dose: 1 mg Lorazepam (Ativan -) 1.5 mg PO HS [facility] Last Admin: 12/10/16 21:38 Dose: 1.5 mg Memantine (Namenda -) 5 mg PO BID [facility] Last Admin: 12/11/16 09:48 Dose: 5 mg Olanzapine (Zyprexa -) 5 mg PO BID [facility] Last Admin: 12/11/16 09:48 Dose: 5 mg - Objective Vital Signs: Vital Signs Temperature 98.0 F 12/11/16 18:05 Pulse Rate 91 H 12/11/16 18:05 Respiratory Rate 20 12/11/16 18:05 Blood Pressure 119/63 12/11/16 18:05 O2 Sat by Pulse Oximetry (%) 93 L 12/11/16 09:00 Constitutional: Yes: No Distress, Calm Eyes: Yes: WNL HENT: Yes: WNL Neck: Yes: Supple Cardiovascular: Yes: Regular Rate and Rhythm, S1, S2 Respiratory: Yes: Regular, CTA Bilaterally Gastrointestinal: Yes: Normal Bowel Sounds, Soft Genitourinary: Yes: WNL Breast(s): Yes: WNL Musculoskeletal: Yes: WNL Extremities: Yes: WNL Edema: No Peripheral Pulses WNL: Yes Integumentary: Yes: WNL Neurological: Yes: Alert, Oriented, Cran Nerves II-XII Intact ...Motor Strength: WNL Psychiatric: Yes: Alert, Oriented Labs: CBC, BMP 12/09/16 08:00 12/09/16 08:00 INR, PTT INR 1.07 (0.82-1.09) 12/04/16 02:50 Problem List - Problems (1) Dementia Code(s): F03.90 - UNSPECIFIED DEMENTIA WITHOUT BEHAVIORAL DISTURBANCE Qualifiers: Dementia type: unspecified type Dementia behavioral disturbance: with behavioral disturbance Qualified Code(s): F03.91 - Unspecified dementia with behavioral disturbance; F10.97 - Alcohol use, unspecified with alcohol- induced persisting dementia (2) Head injury Code(s): S09.90XA - UNSPECIFIED INJURY OF HEAD, INITIAL ENCOUNTER Qualifiers: Encounter type: initial encounter Qualified Code(s): S09.90XA - Unspecified injury of head, initial encounter (3) Soft tissue injury Code(s): T14.8 - OTHER INJURY OF UNSPECIFIED BODY REGION (4) Dementia with aggressive behavior Code(s): F03.91 - UNSPECIFIED DEMENTIA WITH BEHAVIORAL DISTURBANCE Assessment/Plan If he continues without any agitation during the night will transfer to skilled nursing in AM
[2016-12-11] MEDS: LORazepam 1 MG TABLET PO SCH (22:16)
[2016-12-12 09:10] VITALS: BP 125/75; PULSE 90
[2016-12-12] MEDS: OLANZapine 5 MG TABLET PO SCH (09:10)
[2016-12-12] MEDS: MEMANTINE HCL 5 MG TABLET (UD) PO SCH (09:10)
[2016-12-12] MEDS: LORazepam 0.5 MG TABLET PO SCH (09:10)
[2016-12-12] MEDS: ACETAMINOPHEN 325 MG TABLET (FP) PO PRN (09:10)
[2016-12-12 11:30] VITALS: TEMP 97.9
--- NOTE | 2016-12-12 18:01 | DS ---
Physical Examination Vital Signs: Vital Signs Temperature 97.9 F 12/12/16 11:30 Pulse Rate 90 12/12/16 09:09 Respiratory Rate 20 12/12/16 09:09 Blood Pressure 125/75 12/12/16 09:09 O2 Sat by Pulse Oximetry (%) 98 12/12/16 11:00 Findings/Remarks: He was started on Ativan PO and Zyprexa and hasn't been agitated and as per nursing become cooperative. Constitutional: Yes: Well Nourished, No Distress, Calm Eyes: Yes: WNL HENT: Yes: WNL Neck: Yes: Supple Cardiovascular: Yes: Regular Rate and Rhythm, S1, S2 Respiratory: Yes: Regular, CTA Bilaterally Gastrointestinal: Yes: Normal Bowel Sounds, Soft Renal/: Yes: WNL Breast(s): Yes: WNL Musculoskeletal: Yes: WNL Extremities: Yes: WNL Edema: No Peripheral Pulses WNL: Yes Integumentary: Yes: WNL Neurological: Yes: Alert, Oriented, Cran Nerves II-XII Intact ...Motor Strength: WNL Psychiatric: Yes: Alert Labs: CBC, BMP 12/09/16 08:00 12/09/16 08:00 Discharge Summary Reason For Visit: DEMENTIA Current Active Problems Dementia (Acute) Dementia with aggressive behavior (Acute) Procedures: Principal: CT scan of Brain Hospital Course: He had been discharged the previous day to a NH but became very agitated and had to be readmitted. He continued to have episodes of agitation requiring Ativan IM for control. He was maintained on Zyprexa 5mg BID and was started on PO Ativan with gradual increase in the dose and was tranferred to [place] aqfter he was free from restraints for 24 hours Condition: Improved - Instructions Referrals: Araceli Valdes MD [Primary Care Provider] - Disposition: LONGTERM FACILITY - Home Medications Comprehensive Discharge Medication List: Ambulatory Orders Olanzapine [Zyprexa -] 5 mg PO BID tablet 12/03/16 Acetaminophen [Tylenol] 650 mg PO Q4H PRN 12/04/16 Memantine HCl [Namenda -] 10 mg PO BID 12/04/16 Lorazepam [Ativan] 1 mg PO DAILY #30 tablet MDD 1 12/12/16 Lorazepam [Ativan] 1.5 mg PO HS #45 tablet MDD 1.5 12/12/16 Memantine HCl [Namenda -] 5 mg PO BID tab 12/12/16 Olanzapine [Zyprexa -] 5 mg PO BID tablet 12/12/16
== END 2016-12-12 14:59 | DRG 884 ==
LOC: JER 02:26 → JERBED 07:41 → UNDOADMOB 07:50 → INTOOBSV 07:50 → JERBED 07:50 → J5S 12:05 → OBSVTOIN 12-05 09:18
PROVIDERS: ADMIT Internal Medicine Hematology & Oncology; ATTEND Internal Medicine Hematology & Oncology
DX: F03.91 Unspecified dementia, unspecified severity, with behavioral disturbance (principal); F91.8 Other conduct disorders; R45.1 Restlessness and agitation; S00.33XD Contusion of nose, subsequent encounter; S00.81XD Abrasion of other part of head, subsequent encounter; W19.XXXD Unspecified fall, subsequent encounter; I10 Essential (primary) hypertension; E78.5 Hyperlipidemia, unspecified
CPT/HCPCS: 36415; 70450-TC; 70486-TC; 71010-TC; 80053; 81003; 81015; 82550; 82553; 83605; 83735; 84484; 85025; 85610; 87040; 87086; 90670; 93005; 93010; 97116-GP; 97161-GP; 99285-25; G0378

== ENCOUNTER 2017-01-08 15:56 | Emergency (ER) | payer OTHER ==
[2017-01-08 16:10] VITALS: TEMP 98.4; BMI 21.7
--- NOTE | 2017-01-08 16:31 | PDOC ---
History of Present Illness <Jorge Guerra - Last Filed: 01/08/17 18:50> - History of Present Illness Initial Comments: 01/08/17 16:57 The patient is an 81 year old male with a past medical hx of dementia, hypertension, hyperlipidemia, confused at baseline who presents to the ED via EMS from [facility] for evaluation of chest pain. EMS reports the NH said the patient had a complaint of chest pain. The [facility] performed an EKG at the [facility], which shows acute IN. The OH then called EMS. The patients daughter reports he is confused at baseline and notes she is unsure if this chest pain occurred. The patient only speaks [place]. The daughter is translating for the patient at bedside. The daughter is reporting that the patient feels fine and denies chest pain, shortness of breath, nausea, vomiting, diarrhea. Allergies: None Known Past Surgical History: Cholecystectomy Social History: No tobacco, ETOH and recreational drug use. <Cheyanne Richardson - Last Filed: 01/08/17 19:00> - General Chief Complaint: Chest Pain Stated Complaint: CHEST PAIN Time Seen by Provider: 01/08/17 16:26 Past History - Past Medical History Anemia: No Asthma: No Cancer: No Cardiac Disorders: No CVA: No COPD: No CHF: No Dementia: Yes (aggressive behavior) Diabetes: No GI Disorders: No Disorders: No HTN: Yes Hypercholesterolemia: Yes Liver Disease: No Seizures: No Thyroid Disease: No - Surgical History Abdominal Surgery: No Appendectomy: No Cardiac Surgery: No Cholecystectomy: Yes Lung Surgery: No Neurologic Surgery: No Orthopedic Surgery: No - Psycho/Social/Smoking Cessation Hx Anxiety: No Suicidal Ideation: No Smoking Status: No Smoking History: Never smoked Have you smoked in the past 12 months: No Number of Cigarettes Smoked Daily: 0 Information on smoking cessation initiated: No Hx Alcohol Use: No Drug/Substance Use Hx: No Substance Use Type: None Hx Substance Use Treatment: No <Jorge Guerra - Last Filed: 01/08/17 18:50> <Cheyanne Richardson - Last Filed: 01/08/17 19:00> - Past Medical History Allergies/Adverse Reactions: Allergies Allergy/AdvReac Type Severity Reaction Status Date / Time No Known Allergies Allergy Verified 11/29/16 13:26 Home Medications: Ambulatory Orders Acetaminophen [Tylenol] 650 mg PO QID 01/08/17 Cefuroxime Axetil [Ceftin] 250 mg PO BID 01/08/17 Lorazepam [Ativan] 0.5 mg PO BID 01/08/17 Lorazepam [Ativan] 1 mg PO DAILY 01/08/17 Memantine HCl [Namenda -] 10 mg PO DAILY 01/08/17 Mirtazapine [Remeron Soltab -] 15 mg PO DAILY 01/08/17 Olanzapine 15 mg PO DAILY 01/08/17 Tamsulosin HCl [Flomax] 0.4 mg PO DAILY 01/08/17 Review of Systems - Review of Systems Able to Perform ROS?: No (dementia) <Cheyanne Richardson - Last Filed: 01/08/17 19:00> *Physical Exam - Vital Signs Last Vital Signs Temp Pulse Resp BP Pulse Ox 98.4 F 79 20 140/80 96 01/08/17 16:04 01/08/17 16:04 01/08/17 16:04 01/08/17 16:04 01/08/17 16:04 <Jorge Guerra - Last Filed: 01/08/17 18:50> - Vital Signs Last Vital Signs Temp Pulse Resp BP Pulse Ox 98.4 F 79 20 140/80 96 01/08/17 16:04 01/08/17 16:04 01/08/17 16:04 01/08/17 16:04 01/08/17 16:04 - Physical Exam Comments: 01/08/17 16:57 GENERAL: Awake, alert, confused at baseline, in no acute distress HEAD: No signs of trauma EYES: PERRLA, EOMI, sclera anicteric, conjunctiva clear ENT: Auricles normal inspection, hearing grossly normal, nares patent, oropharynx clear without exudates. Moist mucosa NECK: Normal ROM, supple, no lymphadenopathy, JVD, or masses LUNGS: Breath sounds equal, clear to auscultation bilaterally. No wheezes, and no crackles HEART: Regular rate and rhythm, normal S1 and S2, no murmurs, rubs or gallops ABDOMEN: Soft, nontender, normoactive bowel sounds. No guarding, no rebound. No masses EXTREMITIES: Normal range of motion, no edema. No clubbing or cyanosis. No cords, erythema, or tenderness NEUROLOGICAL: Awake and alert. Not answering questions. No gross motor deficits. No gross neurological deficits. SKIN: Warm, Dry, normal turgor, no rashes or lesions noted. <Cheyanne Richardson - Last Filed: 01/08/17 19:00> ED Treatment Course - LABORATORY CBC & Chemistry Diagram: 01/08/17 17:45 01/08/17 17:45 <Jorge Guerra - Last Filed: 01/08/17 18:50> - LABORATORY CBC & Chemistry Diagram: 01/08/17 17:45 01/08/17 17:45 <Cheyanne Richardson - Last Filed: 01/08/17 19:00> Medical Decision Making - Medical Decision Making 01/08/17 18:00 The patient is an 81 year old male with a past medical hx of dementia, hypertension, and hyperlipidemia who presents to the ED via EMS from [facility] for evaluation of chest pain. EMS reports the OH said the patient had a complaint of chest pain. The OH performed an EKG at the OH, which shows acute IN. The EKG performed at the OH was not a good EKG. A second EKG was performed in the ED, which not show any evidence of acute IN. The plan is to order labs, CXR, EKG All tests were negative. The patient can be discharged back to [facility]. Called the daughter and informed her of the negative tests. She agrees to the plan for discharge back to [facility]. All questions answered. <Cheyanne Richardson - Last Filed: 01/08/17 19:00> *DC/Admit/Observation/Transfer - Discharge Dispostion Admit: No - Attestations Physician Attestion: 01/08/17 16:31 I, Dr. Jorge Guerra, attest that this document has been prepared under my direction and personally reviewed by me in its entirety. I further attest, that it accurately reflects all work, treatment, procedures and medical decision -making performed by me. <Jorge Guerra - Last Filed: 01/08/17 18:50> - Attestations Scribe Attestion: 01/08/17 16:57 Documentation prepared by Cheyanne Richardson, acting as medical technologist chief for Jorge Guerra MD/. <Cheyanne Richardson - Last Filed: 01/08/17 19:00> Diagnosis at time of Disposition: Atypical chest pain - Discharge Dispostion Disposition: HOME Condition at time of disposition: Good - Referrals Referrals: Araceli Valdes MD [Primary Care Provider] - - Patient Instructions Printed Discharge Instructions: DI for Atypical Chest Pain Additional Instructions: Return to us if worse or any problems
[2017-01-08 17:59] LABS: BASOPHIL 0.3 % (0-2.0); EOSINOPHIL 1.1 % (0-4.5); MCH 29.2 pg (25.7-33.7); MCHC 33.4 g/dl (32.0-35.9); MEAN CELL VOLUME 87.2 fl (80-96); MEAN PLT VOLUME 8.5 fl (7.5-11.1); NEUTROPHILS 73.6 % (42.8-82.8); PLATELET COUNT 219 K/MM3 (134-434); RDW 14.5 % (11.9-15.9); WHITE BLOOD COUNT 6.4 K/mm3 (4.0-10.0)
[2017-01-08 18:08] LABS: INR 1.11 (0.82-1.09); PROTHROMBIN TIME (PATIENT) 12.2 SEC (9.98-11.88)
[2017-01-08 18:26] LABS: ALBUMIN 3.3 g/dl (3.4-5.0); ANION GAP 10 (8-16); BILIRUBIN,TOTAL 0.3 mg/dL (0.2-1.0); CALCIUM 8.3 mg/dL (8.5-10.1); CO2 26 mmol/L (21-32); CREATININE 0.6 mg/dL (0.7-1.3); GLUCOSE,RANDOM 102 mg/dL (74-106); MAGNESIUM 2.1 mg/dL (1.8-2.4); SGOT/AST 25 U/L (15-37); SGPT/ALT 49 U/L (12-78); TOT PROT 6.7 g/dl (6.4-8.2)
[2017-01-08 18:29] LABS: ALK PHOS 155 U/L (45-117); TROPONIN I < 0.02 ng/ml (0.00-0.05)
[2017-01-08 21:15] VITALS: BP 145/85; PULSE 75
--- NOTE | 2017-01-09 17:09 | EKG ---
Test Reason : Blood Pressure : / mmHG Vent. Rate : 078 BPM Atrial Rate : 078 BPM P-R Int : 262 ms QRS Dur : 082 ms QT Int : 372 ms P-R-T Axes : 040 077 046 degrees QTc Int : 424 ms SINUS RHYTHM WITH 1ST DEGREE A-V BLOCK OTHERWISE NORMAL ECG WHEN COMPARED WITH ECG OF 04-DEC-2016 07:58, PREMATURE VENTRICULAR COMPLEXES ARE NO LONGER PRESENT [place] INTERVAL HAS INCREASED Confirmed by SYLVIA DAVIS, HIRA ([id number]) on 01/09/2017 5:08:52 PM Referred By: Confirmed By:HIRA WARD MD
== END 2017-01-08 21:01 | disposition home or self-care (01) ==
LOC: JER 15:56
DX: R07.89 Other chest pain (principal); F03.90 Unspecified dementia, unspecified severity, without behavioral disturbance, psychotic disturbance, mood disturbance, and anxiety; I10 Essential (primary) hypertension; E78.5 Hyperlipidemia, unspecified
CPT/HCPCS: 36415; 71010-TC; 80053; 82550; 83735; 84484; 85025; 85610; 93005; 93010; 99284-25

== ENCOUNTER 2017-05-14 22:24 | Emergency (ER) | payer OTHER ==
--- NOTE | 2017-05-15 00:12 | PDOC ---
History of Present Illness - General Stated Complaint: FALL Time Seen by Provider: 05/14/17 22:38 History Source: Patient, EMS Exam Limitations: Dementia - History of Present Illness Initial Comments: 82 yo male with h/o head injury, Alzheimer's dementia, anxiety, depression, bipolar disorder, HTN, and BPH (on Flomax) who was BIBA from care facility s/p fall from bed this morning. The patient himself is unable to provide any history of the day's events and is verbal but does not answer questions appropriately. Per care facility staff, the patient fell onto his left head and right knee, sustained abrasions to both knees, and has since complained of pain to both the right side/top of the head and the right knee. She has taken only Motrin, Nyquil, and Dayquil. Past History - Past Medical History Allergies/Adverse Reactions: Allergies Allergy/AdvReac Type Severity Reaction Status Date / Time No Known Allergies Allergy Verified 05/15/17 02:26 Home Medications: Ambulatory Orders Acetaminophen [Tylenol] 650 mg PO QID 01/08/17 Cefuroxime Axetil [Ceftin] 250 mg PO BID 01/08/17 Lorazepam [Ativan] 0.5 mg PO BID 01/08/17 Lorazepam [Ativan] 1 mg PO DAILY 01/08/17 Memantine HCl [Namenda -] 10 mg PO DAILY 01/08/17 Mirtazapine [Remeron Soltab -] 15 mg PO DAILY 01/08/17 Olanzapine 15 mg PO DAILY 01/08/17 Tamsulosin HCl [Flomax] 0.4 mg PO DAILY 01/08/17 Anemia: No Asthma: No Cancer: No Cardiac Disorders: No CVA: No COPD: No CHF: No Dementia: Yes (aggressive behavior) Diabetes: No GI Disorders: No Disorders: No HTN: Yes Hypercholesterolemia: Yes Liver Disease: No Seizures: No Thyroid Disease: No - Surgical History Abdominal Surgery: No Appendectomy: No Cardiac Surgery: No Cholecystectomy: Yes Lung Surgery: No Neurologic Surgery: No Orthopedic Surgery: No - Psycho/Social/Smoking Cessation Hx Anxiety: No Suicidal Ideation: No Smoking Status: No Smoking History: Never smoked Have you smoked in the past 12 months: No Number of Cigarettes Smoked Daily: 0 Hx Alcohol Use: No Drug/Substance Use Hx: No Substance Use Type: None Hx Substance Use Treatment: No Review of Systems - Review of Systems Able to Perform ROS?: No *Physical Exam - Physical Exam General Appearance: Yes: Nourished, Disheveled, Mild Distress, Other (very anxious appearing Iueoufb-[id number]-[id number] male who is speaking quickly and continuously, appears to be listening to questions but reponds inappropriately) HEENT: positive: EOMI, Normal Voice, Hearing Grossly Normal, Other (scleral injection bilaterally, small 0.5x1cm hematoma on the right periorbital region). negative: Scleral Icterus (R), Scleral Icterus (L), Nasal Congestion Neck: positive: Trachea midline, Supple. negative: Tender, Rigid Respiratory/Chest: positive: Lungs Clear, Normal Breath Sounds. negative: Respiratory Distress, Crackles, Rhonchi, Stridor, Wheezing Cardiovascular: positive: Regular Rhythm, Regular Rate. negative: Murmur Gastrointestinal/Abdominal: positive: Normal Bowel Sounds, Soft. negative: Tender, Organomegaly, Pulsatile Mass, Guarding Musculoskeletal: positive: Other (pelvis is stable and nontender to compression and patient has full active ROM at both hips). negative: Decreased Range of Motion, Vertebral Tenderness Extremity: positive: Normal Capillary Refill, Normal Range of Motion, Other ( right knee 2x2 cm superficial abrasion, moderate right knee effusion, no ligamentous instability with lateral/medial/anterior/posterior stress). negative: Tender, Cyanosis Integumentary: positive: Normal Color, Dry, Warm. negative: Erythema, Rash, Bruising Neurologic: positive: Alert, Motor Strength 5/5, Other (cranial nerves II-XII grossly intact, moves all four extremities equally and symmetrically, not able to follow commands, ) ED Treatment Course - RADIOLOGY Radiology Studies Ordered: Category Date Time Status CERVICAL SPINE CT W/O CONTR [CT] Stat Impression: degenerative changes. Negative for cervical fracture or acute cervical malalignment. Anterolisthesis of C5-6 and C6-7 likely degenerative and was present on prior scan. CT Scan 05/15/17 00:[address] WITHOUT CONTRAST [CT] Stat ImpressionL Involutional changes, no hemorrhage, no mass, no detectable acute infarct, osseous structures intact. CT Scan 05/15/17 00:06 Ordered KNEE 3 POS-RIGHT [RAD] Stat EP impression: nothing acute Radiology 05/15/17 00:06 Ordered Medical Decision Making - Medical Decision Making 82 yo male with h/o dementia BIBA after fall from bed this morning. C/o head pain and right knee pain. Exam without acute neuro findings or vertebral tenderness. Right knee tenderness and effusion with overlying superficial abrasion. No pelvic instability or decreased ROM at hips. DDX includes head trauma (SDH), other ICH, basilar skull fracture, vertebral fracture, knee fracture or ligamentous injury, or muscular pathology. Ordered are Head and C-spine CT without contrast and right knee x-ray. 05/15/17 03:40 Pt clutched abdomen when asked where pain is, Pt has known BPH. Straight cath yields 500 cc light yellow non-sedimentaceous urine. Pt promptly returns to napping. 05/15/17 06:42 Pt has been discharged and is awaiting transport back to SNF (EMS has been called). *DC/Admit/Observation/Transfer Diagnosis at time of Disposition: Fall Qualifiers: Encounter type: initial encounter Qualified Code(s): W19.XXXA - Unspecified fall, initial encounter Knee joint effusion Qualifiers: Laterality: right Qualified Code(s): M25.461 - Effusion, right knee - Discharge Dispostion Disposition: INTERMEDIATE FACILITY Condition at time of disposition: Stable Admit: No - Referrals Referrals: Araceli Valdes MD [Primary Care Provider] - - Patient Instructions Printed Discharge Instructions: How to Prevent Falls Additional Instructions: You were seen tonight for a fall. You had knee pain and swelling, and we did a knee x-ray which was normal. We could not tell if you had lost consciousness and could not get a good understanding of the events of the fall, so we did a head and C-spine CT which also showed nothing acute. You seemed to be complaining about retaining urine, so we did a straight cath and got 500 mL urine which looked normal. Please take your BPH medications as normal this morning, and follow up with your regular doctor or return to the ED with any further emergency concerns. - Attestations Physician Attestion: 05/15/17 06:07 I, Dr. Josy Pearson, attest that this document has been prepared under my direction and personally reviewed by me in its entirety. I further attest, that it accurately reflects all work, treatment, procedures and medical decision -making performed by me.
[2017-05-15 02:28] VITALS: TEMP 99.4; BMI 27.3
[2017-05-15 09:10] VITALS: BP 153/94; PULSE 77
== END 2017-05-15 09:11 ==
LOC: JER 22:24
PROC: 0T9B70Z Drainage of Bladder with Drainage Device, Via Natural or Artificial Opening (ICD-10-PCS; principal; 2017-05-14)
DX: S09.8XXA Other specified injuries of head, initial encounter (principal); M25.461 Effusion, right knee; W06.XXXA Fall from bed, initial encounter; Y93.89 Activity, other specified; Y92.122 Bedroom in nursing home as the place of occurrence of the external cause; I10 Essential (primary) hypertension; G30.9 Alzheimer's disease, unspecified; F02.81 Dementia in other diseases classified elsewhere, unspecified severity, with behavioral disturbance; F41.8 Other specified anxiety disorders; F31.9 Bipolar disorder, unspecified; N40.0 Benign prostatic hyperplasia without lower urinary tract symptoms
CPT/HCPCS: 70450-TC; 72125-TC; 73562-TC-RT; 99283-25

== ENCOUNTER 2017-09-03 12:43 | Emergency (ER) | payer OTHER ==
[2017-09-03 13:20] VITALS: TEMP 98.5; BMI 26.4
--- NOTE | 2017-09-03 13:21 | PDOC ---
History of Present Illness - General Chief Complaint: Headache Stated Complaint: HEADACHE Time Seen by Provider: 09/03/17 12:58 History Source: Care Provider (HPI partially obtained from staff @ [facility] Marisol FUNEZ) Exam Limitations: Dementia, Other (Hearing Loss, does not use sign language) - History of Present Illness Initial Comments: 09/03/17 13:23 Patient is a 82 y.o. male with a PMH of HTN, DLD, Bipolar Disorder, Schizophrenia and BPH who presents from [facility] as nursing staff noticed a 2 day h/o of flushed skin, red conjunctivae and disruptive behavior (kicking tables and chairs). Patient was given Tylenol 650 TID and one dose today prior to transfer to our facility. Nursing staff denies any witnessed fall, vomiting, fevers, decreased PO intake. Nursing staff further notes patient has transient memory/recall and is unable to convey SiSx. NKDA Surgical: As per EMR, cholecystectomy PMD: Dr. Jan Haque Past History - Past Medical History Allergies/Adverse Reactions: Allergies Allergy/AdvReac Type Severity Reaction Status Date / Time No Known Allergies Allergy Verified 09/03/17 13:08 Home Medications: Ambulatory Orders Acetaminophen [Tylenol] 650 mg PO QID 01/08/17 Memantine HCl [Namenda -] 10 mg PO DAILY 01/08/17 Mirtazapine [Remeron Soltab -] 15 mg PO DAILY 01/08/17 Tamsulosin HCl [Flomax] 0.4 mg PO DAILY 01/08/17 Hypromellose 0.5% Opth Soln [Artificial Tears] 1 drop PO BID 09/03/17 Quetiapine Fumarate "Xr" [Seroquel Xr -] 150 mg PO DAILY 09/03/17 Saliva Stimulant Agents Comb.3 [Biotene Moisturizing Mouth] 44.3 ml MM TID 09/03 Anemia: No Asthma: No Cancer: No Cardiac Disorders: No CVA: No COPD: No CHF: No Dementia: Yes (aggressive behavior) Diabetes: No GI Disorders: No Disorders: No HTN: Yes Hypercholesterolemia: Yes Liver Disease: No Seizures: No Thyroid Disease: No - Surgical History Abdominal Surgery: No Appendectomy: No Cardiac Surgery: No Cholecystectomy: Yes Lung Surgery: No Neurologic Surgery: No Orthopedic Surgery: No - Suicide/Smoking/Psychosocial Hx Smoking Status: No Smoking History: Unknown if ever smoked Have you smoked in the past 12 months: No Number of Cigarettes Smoked Daily: 0 Hx Alcohol Use: No Drug/Substance Use Hx: No Substance Use Type: None Hx Substance Use Treatment: No Review of Systems - Review of Systems Able to Perform ROS?: No (Dementia) *Physical Exam - Vital Signs Last Vital Signs Temp Pulse Resp BP Pulse Ox 98.5 F 78 18 140/67 100 09/03/17 12:50 09/03/17 12:50 09/03/17 12:50 09/03/17 12:50 09/03/17 12:50 - Physical Exam General Appearance: Yes: Nourished, Appropriately Dressed HEENT: positive: EOMI, SUSANA, Other (B/L conjunctival injection; significant facial plethora from forehead to neck). negative: Pharyngeal Erythema, Tonsillar Erythema, Sinus Tenderness, TM Bulging, TM Dull, TM Erythema, Thrush Neck: positive: Trachea midline, Supple Respiratory/Chest: positive: Lungs Clear, Normal Breath Sounds. negative: Labored Respiration, Rapid RR, Crackles, Rales, Rhonchi, Stridor, Wheezing Cardiovascular: positive: S1, S2. 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 negative: Facial Droop ED Treatment Course - LABORATORY CBC & Chemistry Diagram: 09/03/17 14:05 09/03/17 14:05 Medical Decision Making - Medical Decision Making 09/03/17 16:39 Patient is an 82 y.o. male who presents from [facility] with c/o headache. History taking limited 2/2 to patient's LEP as well as B/L deafness. 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 Patient's CT scan negative for acute bleed, with aplastic frontal sinuses. 11/15/17 16:43 As patient is symptomatically improved with Tylenol and IV NS, patient to be discharged to [facility]. Patient's PCP, Dr. Krishna, contacted discussed possibility of dural venous thrombosis given patient's history of PCV. [facility] contacted, requested to add PCV to patient medical record. 09/03/17 20:13 Patient transported to [facility]. *DC/Admit/Observation/Transfer Diagnosis at time of Disposition: Headache - Discharge Dispostion Disposition: HOME Condition at time of disposition: Good Admit: No - Referrals Referrals: Araceli Valdes MD [Primary Care Provider] - - Patient Instructions - Post Discharge Activity
[2017-09-03] MEDS ORDERED: ACETAMINOPHEN 1000 MG/100 ML VIAL (NON FORMULARY) IVPB ONE (13:54)
[2017-09-03] MEDS ORDERED: ACETAMINOPHEN INJECTION 100 ML IVPB ONE (13:57)
--- NOTE | 2017-09-03 14:09 | PDOC ---
Attending Attestation - HPI HPI: 09/03/17 14:25 Pt is a 82 yo M resident from [facility] with a PMHx of HTN , DLD, Bipolar Disorder, Schizophrenia and BPH who presents to the ED with reports of disruptive behavior and headache for the past 24 hours. PCP: Lucio - Medical Decision Making 09/03/17 14:16 Documentation prepared by [employer], acting as medical billing service for Judson Hodges MD <Lona Pro - Last Filed: 09/03/17 14:36> - Resident Resident Name: Bre Garcia - ED Attending Attestation I have performed the following: I have examined & evaluated the patient, The case was reviewed & discussed with the resident, I agree w/resident's findings & plan, Exceptions are as noted - Physicial Exam PE: 09/03/17 14:49 Patient is awake and alert, afebrile, nontoxic appearing; nc, atr face-plethoric perrla, eomi supple; no carotid bruits; no cervical lymphadenopathy; cta rrr moving all extr symmetrically no petechiae - Medical Decision Making 09/03/17 16:11 Patient is an 82-year-old male with history of dementia, polycythemia vera, hypertension who presents to the ER with disruptive behavior at a welch intermediate and holding his head likely caused by an atraumatic headache. In the ER, initial evaluation, patient is noted to be plethoric, with no focal neurological deficits, without evidence of meningismus. Head CT reveals no evidence of acute intracranial pathology. CBC reveals elevated hemoglobin and hematocrit consistent with PMD. CMP and urinalysis are within normal limit. I do not suspect meningitis or subarachnoid hemorrhage at this time. Dural sinus thrombosis is unlikely. Patient improved clinically after administration of acetaminophen. Will discharge with outpatient follow-up. <Judson Hodges - Last Filed: 09/03/17 16:13>
[2017-09-03 14:17] LABS: BASOPHIL 0.4 % (0-2.0); EOSINOPHIL 2.6 % (0-4.5); MCH 27.3 pg (25.7-33.7); MCHC 32.9 g/dl (32.0-35.9); MEAN CELL VOLUME 82.9 fl (80-96); MEAN PLT VOLUME 8.2 fl (7.5-11.1); NEUTROPHILS 67.9 % (42.8-82.8); PLATELET COUNT 231 K/MM3 (134-434); RDW 14.6 % (11.9-15.9)
[2017-09-03 14:20] LABS: URINE APPEARANCE CLEAR; URINE BILIRUBIN NEGATIVE (NEGATIVE); URINE BLOOD NEGATIVE (NEGATIVE); URINE COLOR STRAW; URINE GLUCOSE (UA) NEGATIVE (NEGATIVE); URINE KETONE NEGATIVE (NEGATIVE); URINE NITRITE NEGATIVE (NEGATIVE); URINE PROTEIN NEGATIVE (NEGATIVE); URINE UROBILINOGEN NEGATIVE mg/dL (0.2-1.0)
[2017-09-03 14:37] LABS: ALBUMIN 3.7 g/dl (3.4-5.0); ANION GAP 8 (8-16); BILIRUBIN,TOTAL 0.3 mg/dL (0.2-1.0); CALCIUM 8.5 mg/dL (8.5-10.1); CO2 28 mmol/L (21-32); CREATININE 0.7 mg/dL (0.7-1.3); GLUCOSE,RANDOM 115 mg/dL (74-106); SGOT/AST 16 U/L (15-37); SGPT/ALT 25 U/L (12-78); TOT PROT 7.2 g/dl (6.4-8.2)
[2017-09-03 14:40] LABS: ALK PHOS 117 U/L (45-117); CPK 75 IU/L (39-308); TROPONIN I < 0.02 ng/ml (0.00-0.05)
[2017-09-03 14:45] LABS: PROTHROMBIN TIME (PATIENT) 11.3 SEC (9.98-11.88)
[2017-09-03 14:48] LABS: ACTIVATED PTT 31.3 SECONDS (26.9-34.4)
[2017-09-03] MEDS ORDERED: SODIUM CHLORIDE 0.9% 1000 ML INFUS.BAG IV ONE (15:39)
[2017-09-03 19:33] VITALS: BP 132/61; PULSE 83
[2017-09-03 21:16] LABS: URINE LEUK ESTERASE Negative (NEGATIVE)
== END 2017-09-03 20:24 | disposition home or self-care (01) ==
LOC: JER 12:43
PROC: 3E0337Z Introduction of Electrolytic and Water Balance Substance into Peripheral Vein, Percutaneous Approach (ICD-10-PCS; principal; 2017-09-03)
PROC: 3E033NZ Introduction of Analgesics, Hypnotics, Sedatives into Peripheral Vein, Percutaneous Approach (ICD-10-PCS; 2017-09-03)
DX: R51 Headache (principal)
CPT/HCPCS: 36415; 70450-TC; 71020-TC; 80053; 81003; 82550; 84484; 85025; 85610; 85730; 86850; 86900; 86901; 87086; 96374; 99282-25

== ENCOUNTER 2021-04-03 12:02 | Inpatient (IN) | payer OTHER ==
[2021-04-03 12:21] VITALS: BMI 22.6
[2021-04-03 13:44] LABS: BASO % 0.3 % (0-2.0); EOS % 0.1 % (0-4.5); HEMATOCRIT 48.1 % (35.4-49); HEMOGLOBIN 15.7 GM/dL (11.7-16.9); LYMPH % 22.2 % (8-40); MCH 27.4 pg (25.7-33.7); MCHC 32.6 g/dl (32.0-35.9); MEAN PLT VOLUME 8.6 fl (7.5-11.1); MONO % 6.6 % (3.8-10.2); NEUT % 70.8 % (42.8-82.8); PLATELET COUNT 243 10^3/uL (134-434); RBC 5.73 M/mm3 (4.00-5.60); RDW 14.9 % (11.9-15.9); WHITE BLOOD COUNT 6.9 K/mm3 (4.0-10.0)
[2021-04-03 14:03] LABS: INR 0.99 (0.83-1.09); PROTHROMBIN TIME (PATIENT) 12.2 SEC (9.7-13.0)
[2021-04-03 14:06] LABS: CALCIUM 8.7 mg/dL (8.5-10.1)
[2021-04-03 14:07] LABS: ALBUMIN 3.4 g/dl (3.4-5.0); BLOOD UREA NITROGEN 24.6 mg/dL (7-18)
[2021-04-03 14:10] LABS: CREATININE 0.8 mg/dL (0.55-1.3)
[2021-04-03 14:12] LABS: BILIRUBIN,TOTAL 0.9 mg/dL (0.2-1); TOT PROT 6.8 g/dl (6.4-8.2)
[2021-04-03] MEDS ORDERED: MIDAZOLAM HCL 2 MG/2 ML SINGLE DOSE VIAL IVPUSH ONE (16:44)
[2021-04-04 07:21] LABS: BASO % 0.8 % (0-2.0); EOS % 0.1 % (0-4.5); HEMATOCRIT 45.5 % (35.4-49); HEMOGLOBIN 15.4 GM/dL (11.7-16.9); LYMPH % 19.8 % (8-40); MCH 28.1 pg (25.7-33.7); MCHC 33.8 g/dl (32.0-35.9); MEAN CELL VOLUME 83.1 fl (80-96); MEAN PLT VOLUME 8.2 fl (7.5-11.1); MONO % 9.9 % (3.8-10.2); NEUT % 69.4 % (42.8-82.8); PLATELET COUNT 222 10^3/uL (134-434); RBC 5.48 M/mm3 (4.00-5.60); RDW 14.4 % (11.9-15.9); WHITE BLOOD COUNT 6.1 K/mm3 (4.0-10.0)
[2021-04-04 07:45] LABS: ALBUMIN 3.4 g/dl (3.4-5.0); CALCIUM 8.4 mg/dL (8.5-10.1)
[2021-04-04 07:46] LABS: BLOOD UREA NITROGEN 30.9 mg/dL (7-18)
[2021-04-04 07:49] LABS: CREATININE 0.7 mg/dL (0.55-1.3)
[2021-04-04 07:50] LABS: TOT PROT 6.5 g/dl (6.4-8.2)
[2021-04-04 10:32] LABS: MAGNESIUM 2.1 mg/dL (1.8-2.4)
[2021-04-04] MEDS: TAMSULOSIN HCL 0.4 MG CAP PO SCH (11:35)
[2021-04-04] MEDS: MEMANTINE HCL 10 MG TABLET (FP) PO SCH (11:35)
[2021-04-04] MEDS: ACETAMINOPHEN 325 MG TABLET (FP) PO PRN (11:35)
[2021-04-04] MEDS: LISINOPRIL 5 MG TABLET PO SCH (15:08)
[2021-04-04] MEDS: DEXTROSE 5%-NORMAL SALINE 1,000 ML IV SCH (21:30)
[2021-04-04] MEDS ORDERED: MIRTAZAPINE 15 MG PO SCH (22:00)
[2021-04-05] MEDS: DEXTROSE 5%-NORMAL SALINE 1,000 ML IV SCH ×2 (06:16→22:17)
[2021-04-05] MEDS: MEMANTINE HCL 10 MG TABLET (FP) PO SCH (09:52)
[2021-04-05] MEDS: TAMSULOSIN HCL 0.4 MG CAP PO SCH (09:52)
[2021-04-05] MEDS: LISINOPRIL 5 MG TABLET PO SCH (09:52)
[2021-04-05] MEDS: ARTIFICIAL TEARS (POLYVINYL ALCOHOL) OPTH DROPS OU SCH ×2 (16:29→23:50)
[2021-04-05] MEDS ORDERED: LORazepam 2 MG/ML SDV VIAL IVPUSH PRN (17:07)
[2021-04-06 08:25] LABS: CALCIUM 8.3 mg/dL (8.5-10.1)
[2021-04-06 08:26] LABS: BLOOD UREA NITROGEN 30.3 mg/dL (7-18)
[2021-04-06 08:29] LABS: CREATININE 0.7 mg/dL (0.55-1.3)
[2021-04-06] MEDS ORDERED: PT OWN MED DRAWER 7, Y5N ONE ×2 (09:07→15:42)
[2021-04-06] MEDS: DEXTROSE 5%-NORMAL SALINE 1,000 ML IV SCH (09:37)
[2021-04-06] MEDS: ARTIFICIAL TEARS (POLYVINYL ALCOHOL) OPTH DROPS OU SCH (09:38)
[2021-04-06] MEDS: MEMANTINE HCL 10 MG TABLET (FP) PO SCH (09:38)
[2021-04-06] MEDS: TAMSULOSIN HCL 0.4 MG CAP PO SCH (09:38)
[2021-04-06 09:58] LABS: N-TERMINAL BNP 215.7 pg/ml (5-450)
[2021-04-06] MEDS ORDERED: POLYETHYLENE GLYCOL 3350 119 GM BTL PO SCH (10:00)
[2021-04-06] MEDS ORDERED: LISINOPRIL 10 MG TABLET PO SCH (10:00)
[2021-04-06 15:06] VITALS: BP 150/82; PULSE 55; TEMP 97.5
[2021-04-06] MEDS: ACETAMINOPHEN 325 MG TABLET (FP) PO PRN (15:35)
== END 2021-04-06 17:24 | DRG 309 ==
LOC: JER 12:02 → JERBED 13:37 → J4W 04-04 00:03
PROVIDERS: ATTEND Family Medicine
DX: I44.2 Atrioventricular block, complete (principal); N17.9 Acute kidney failure, unspecified; F02.81 Dementia in other diseases classified elsewhere, unspecified severity, with behavioral disturbance; R00.1 Bradycardia, unspecified; I10 Essential (primary) hypertension; F41.8 Other specified anxiety disorders; G30.9 Alzheimer's disease, unspecified; F31.9 Bipolar disorder, unspecified; N40.0 Benign prostatic hyperplasia without lower urinary tract symptoms; H91.8X3 Other specified hearing loss, bilateral; E78.5 Hyperlipidemia, unspecified; F20.9 Schizophrenia, unspecified; R26.81 Unsteadiness on feet; R94.31 Abnormal electrocardiogram [ECG] [EKG]; R41.82 Altered mental status, unspecified
CPT/HCPCS: 36415; 71045-TC-FY; 80048; 80053; 80061; 82550; 82553; 83721; 83735; 83880; 84443; 84484; 85025; 85610; 86850; 86900; 86901; 93005; 93010; 93306-TC; 97116-GP; 97161-GP; 99291; C9803; U0003; U0005

== ENCOUNTER 2021-04-07 10:12 | Observation (INO) | payer OTHER ==
[2021-04-07 10:40] VITALS: BMI 22.6
[2021-04-07 11:11] LABS: BASO % 0.3 % (0-2.0); EOS % 1.5 % (0-4.5); HEMATOCRIT 47.1 % (35.4-49); HEMOGLOBIN 15.2 GM/dL (11.7-16.9); LYMPH % 34.8 % (8-40); MCH 27.6 pg (25.7-33.7); MCHC 32.3 g/dl (32.0-35.9); MEAN CELL VOLUME 85.4 fl (80-96); MEAN PLT VOLUME 8.7 fl (7.5-11.1); MONO % 6.1 % (3.8-10.2); NEUT % 57.3 % (42.8-82.8); PLATELET COUNT 215 10^3/uL (134-434); RBC 5.52 M/mm3 (4.00-5.60); RDW 14.9 % (11.9-15.9); WHITE BLOOD COUNT 5.4 K/mm3 (4.0-10.0)
[2021-04-07 11:18] LABS: INR 1.03 (0.83-1.09); PROTHROMBIN TIME (PATIENT) 12.7 SEC (9.7-13.0)
[2021-04-07 11:20] LABS: ACTIVATED PTT 26.1 SECONDS (25.2-36.5)
[2021-04-07 11:21] LABS: VENOUS BASE EXCESS -0.4 mmol/L (-2-2); VENOUS PCO2 44.3 mmHg (38-52); VENOUS PH 7.371 (7.310-7.410)
[2021-04-07 11:32] LABS: ALBUMIN 2.9 g/dl (3.4-5.0); ANION GAP 4 MMOL/L (8-16); BLOOD UREA NITROGEN 35.8 mg/dL (7-18); CALCIUM 8.5 mg/dL (8.5-10.1); CHLORIDE 114 mmol/L (98-107); CO2 27 mmol/L (21-32); GLUCOSE,RANDOM 96 mg/dL (74-106); MAGNESIUM 2.4 mg/dL (1.8-2.4); SODIUM 145 mmol/L (136-145)
[2021-04-07 11:35] LABS: CREATININE 0.8 mg/dL (0.55-1.3); SGOT/AST 41 U/L (15-37); SGPT/ALT 38 U/L (13-61)
[2021-04-07 11:37] LABS: BILIRUBIN,TOTAL 0.7 mg/dL (0.2-1); TOT PROT 6.1 g/dl (6.4-8.2)
[2021-04-07 11:38] LABS: ALK PHOS 74 U/L (45-117)
[2021-04-07 11:40] LABS: N-TERMINAL BNP 275.1 pg/ml (5-450)
[2021-04-07] MEDS ORDERED: HALOPERIDOL LACTATE 5 MG/ML IM ONE (12:43)
[2021-04-07] MEDS ORDERED: HALOPERIDOL LACTATE 5 MG/ML ONE (12:45)
[2021-04-07] MEDS ORDERED: ACETAMINOPHEN 325 MG TABLET (FP) PO PRN (18:23)
[2021-04-07] MEDS ORDERED: LORazepam 0.5 MG TABLET PO PRN (18:24)
[2021-04-07] MEDS ORDERED: LORazepam 2 MG/ML SDV VIAL IVPUSH ONE (18:31)
[2021-04-07] MEDS ORDERED: OLANZapine 5 MG TABLET PO SCH (22:00)
[2021-04-07] MEDS: HEPARIN NA (PORCINE) 5,000 UNITS/ML 1ML VIAL SQ SCH (23:15)
[2021-04-08 01:01] VITALS: TEMP 98
[2021-04-08] MEDS ORDERED: PT OWN MED DRAWER 7, Y5N ONE (08:44)
[2021-04-08] MEDS: HEPARIN NA (PORCINE) 5,000 UNITS/ML 1ML VIAL SQ SCH (09:40)
[2021-04-08 09:51] VITALS: BP 131/84; PULSE 58
[2021-04-08] MEDS ORDERED: POLYETHYLENE GLYCOL 3350 119 GM BTL PO SCH (10:00)
[2021-04-08] MEDS ORDERED: LISINOPRIL 10 MG TABLET PO SCH (10:00)
[2021-04-08] MEDS ORDERED: TAMSULOSIN HCL 0.4 MG CAP PO SCH (10:00)
[2021-04-08] MEDS ORDERED: MEMANTINE HCL 10 MG TABLET (FP) PO SCH (10:00)
== END 2021-04-08 14:03 ==
LOC: JER 10:12 → JERBED 14:44 → J4W 18:03
PROVIDERS: ADMIT Family Medicine; ATTEND Family Medicine
PROC: 3E033GC Introduction of Other Therapeutic Substance into Peripheral Vein, Percutaneous Approach (ICD-10-PCS; principal; 2021-04-07)
PROC: 3E023GC Introduction of Other Therapeutic Substance into Muscle, Percutaneous Approach (ICD-10-PCS; 2021-04-07)
PROC: 3E013GC Introduction of Other Therapeutic Substance into Subcutaneous Tissue, Percutaneous Approach (ICD-10-PCS; 2021-04-07)
DX: R00.1 Bradycardia, unspecified (principal); I44.1 Atrioventricular block, second degree; R41.82 Altered mental status, unspecified; F03.91 Unspecified dementia, unspecified severity, with behavioral disturbance; I10 Essential (primary) hypertension; E78.5 Hyperlipidemia, unspecified; N40.0 Benign prostatic hyperplasia without lower urinary tract symptoms; W19.XXXA Unspecified fall, initial encounter; Z91.81 History of falling; Y93.9 Activity, unspecified; Y92.9 Unspecified place or not applicable; R29.6 Repeated falls
CPT/HCPCS: 36415; 70450-TC; 71045-TC-FY; 72125-TC; 80053; 82550; 82803; 82962; 83605; 83735; 83880; 84484; 85025; 85610; 85730; 93005; 93010; 96372; 96374; 99285-25; C9803; G0378; J1644; U0003; U0005

== ENCOUNTER 2021-06-09 08:33 | Inpatient (IN) | payer OTHER ==
[2021-06-09] MEDS ORDERED: ACETAMINOPHEN 1000 MG/100 ML VIAL (NON FORMULARY) IVPB ONE (08:50)
[2021-06-09] MEDS ORDERED: ACETAMINOPHEN INJECTION 100 ML IVPB ONE (08:55)
[2021-06-09] MEDS ORDERED: LACTATED RINGERS SOLUTION 1000 ML INFUS.BAG IV ONE (09:06)
[2021-06-09] MEDS ORDERED: PIPERACILLIN/TAZOB 3.375 GM 3.375 GM/50 ML BAG IVPB ONE (09:09)
[2021-06-09] MEDS ORDERED: VANCOMYCIN 1 GRAM (PRE-DOCKED) 1,000 MG/250 ML BAG IVPB ONE (09:09)
[2021-06-09] MEDS ORDERED: VANCOMYCIN 1 GM in D5W (PRE-DOCKED) 1,000 MG/250 ML IVPB ONE (09:10)
[2021-06-09] MEDS ORDERED: PIPERACILLIN/TAZOB 4.5 GM 4.5 GM in DEXTROSE 5%-WATER 100 ML IVPB ONE (09:10)
[2021-06-09] MEDS ORDERED: PIPERACILLIN/TAZOB 2.25 GM 2.25 GM/50 ML BAG IVPB ONE (09:22)
[2021-06-09 09:31] LABS: VENOUS BASE EXCESS 0.1 mmol/L (-2-2); VENOUS O2 SATURATION 40.5 % (70-80); VENOUS PCO2 42.7 mmHg (38-52); VENOUS PH 7.39 (7.310-7.410)
[2021-06-09 09:37] LABS: BASO % 0.2 % (0-2.0); HEMATOCRIT 43.2 % (35.4-49); HEMOGLOBIN 14.7 GM/dL (11.7-16.9); LYMPH % 10.2 % (8-40); MCH 28.8 pg (25.7-33.7); MEAN CELL VOLUME 84.8 fl (80-96); MEAN PLT VOLUME 8.7 fl (7.5-11.1); MONO % 4.4 % (3.8-10.2); NEUT % 85.2 % (42.8-82.8); PLATELET COUNT 175 10^3/uL (134-434); RBC 5.09 M/mm3 (4.00-5.60); RDW 17.5 % (11.9-15.9); WHITE BLOOD COUNT 8.4 K/mm3 (4.0-10.0)
[2021-06-09 09:42] LABS: INR 1.08 (0.83-1.09); PROTHROMBIN TIME (PATIENT) 13.2 SEC (9.7-13.0)
[2021-06-09 09:44] VITALS: BMI 22.3
[2021-06-09 09:44] LABS: ACTIVATED PTT 27.3 SECONDS (25.2-36.5)
[2021-06-09 09:51] LABS: CHLORIDE 103 mmol/L (98-107); EPI CELLS 6 /uL (0-25.1); HYALINE CASTS 2 /uL (0-3.1); SODIUM 137 mmol/L (136-145); URINE APPEARANCE CLEAR; URINE BACTERIA 7 /uL (0-1359); URINE BILIRUBIN 1+ (NEGATIVE); URINE COLOR DK YELLOW; URINE GLUCOSE (UA) TRACE (NEGATIVE); URINE KETONE 3+ (NEGATIVE); URINE LEUK ESTERASE NEGATIVE (NEGATIVE); URINE NITRITE NEGATIVE (NEGATIVE); URINE PROTEIN TRACE (NEGATIVE); URINE RBC 194 /uL (0-23.9); URINE WBC 12 /uL (0-25.8)
[2021-06-09 09:55] LABS: CALCIUM 8.1 mg/dL (8.5-10.1); GLUCOSE,RANDOM 117 mg/dL (74-106)
[2021-06-09 09:56] LABS: ALBUMIN 2.9 g/dl (3.4-5.0); ANION GAP 10 MMOL/L (8-16); CO2 24 mmol/L (21-32)
[2021-06-09 09:58] LABS: BILIRUBIN,DIRECT 0.3 mg/dL (0.0-0.2); CREATININE 0.8 mg/dL (0.55-1.3); SGOT/AST 42 U/L (15-37); SGPT/ALT 25 U/L (13-61)
[2021-06-09 09:59] LABS: BILIRUBIN,TOTAL 0.6 mg/dL (0.2-1)
[2021-06-09 10:00] LABS: ALK PHOS 142 U/L (45-117); LDH 181 U/L (87-246); TOT PROT 6.9 g/dl (6.4-8.2)
[2021-06-09 10:16] LABS: LACTIC ACID 2.7 mmol/L (0.4-2.0)
[2021-06-09 12:15] LABS: VENOUS BASE EXCESS -3.4 mmol/L (-2-2); VENOUS O2 SATURATION 58.8 % (70-80); VENOUS PCO2 36.5 mmHg (38-52); VENOUS PH 7.38 (7.310-7.410)
[2021-06-09] MEDS ORDERED: ACETAMINOPHEN 325 MG TABLET (FP) PO PRN (15:26)
[2021-06-09] MEDS ORDERED: D5-1/2NS+20 MEQ KCL - 20 MEQ/1,000 ML INFUS.BAG IV SCH (15:30)
[2021-06-09] MEDS ORDERED: POTASSIUM CHLORIDE 10 MEQ in DEXTROSE 5%-0.45% SALINE 995 ML IV SCH (16:45)
[2021-06-09] MEDS ORDERED: PIPERACILLIN/TAZOBACTAM 3.375 GM VIAL IVPB ONE (17:18)
[2021-06-09] MEDS ORDERED: DEXTROSE 5%-WATER - 50 ML IVPB ONE (17:19)
[2021-06-09] MEDS ORDERED: PIPERACILLIN/TAZOB 3.375 GM 3.375 GM in DEXTROSE 5%-WATER - 50 ML IVPB SCH (18:00)
[2021-06-09] MEDS ORDERED: VALPROATE SODIUM PO SCH (22:00)
[2021-06-09] MEDS ORDERED: ARTIFICIAL TEARS (POLYVINYL ALCOHOL) OPTH DROPS OU SCH (22:00)
[2021-06-09] MEDS ORDERED: VALPROATE SODIUM 250 MG/5 ML UNIT DOSE CUP PO SCH (22:00)
[2021-06-09] MEDS ORDERED: D5-1/2NS+10 MEQ KCL - 10 MEQ/1,000 ML INFUS.BAG IV SCH (22:45)
[2021-06-10] MEDS ORDERED: PIPERACILLIN/TAZOBACTAM 3.375 GM VIAL IVPB ONE (01:33)
[2021-06-10] MEDS ORDERED: DEXTROSE 5%-WATER - 50 ML IVPB ONE (01:33)
[2021-06-10] MEDS ORDERED: PIPERACILLIN/TAZOB 3.375 GM 3.375 GM in DEXTROSE 5%-WATER - 50 ML IVPB SCH (02:00)
[2021-06-10 06:31] VITALS: BP 140/65; PULSE 65; TEMP 98.3
[2021-06-10 08:17] LABS: HEMATOCRIT 38.9 % (35.4-49); HEMOGLOBIN 13.1 GM/dL (11.7-16.9); MCH 28.8 pg (25.7-33.7); MCHC 33.8 g/dl (32.0-35.9); MEAN CELL VOLUME 85.2 fl (80-96); MEAN PLT VOLUME 8.5 fl (7.5-11.1); PLATELET COUNT 144 10^3/uL (134-434); RBC 4.56 M/mm3 (4.00-5.60); RDW 17.8 % (11.9-15.9); WHITE BLOOD COUNT 11.1 K/mm3 (4.0-10.0)
[2021-06-10 08:30] LABS: CHLORIDE 106 mmol/L (98-107); SODIUM 138 mmol/L (136-145)
[2021-06-10] MEDS ORDERED: TAMSULOSIN HCL 0.4 MG CAP PO SCH (08:30)
[2021-06-10 08:40] LABS: ANION GAP 9 MMOL/L (8-16); BLOOD UREA NITROGEN 26.5 mg/dL (7-18); CALCIUM 7.8 mg/dL (8.5-10.1); CO2 23 mmol/L (21-32); GLUCOSE,RANDOM 116 mg/dL (74-106)
[2021-06-10 08:43] LABS: CREATININE 0.9 mg/dL (0.55-1.3); SGOT/AST 26 U/L (15-37); SGPT/ALT 19 U/L (13-61)
[2021-06-10 08:44] LABS: BILIRUBIN,TOTAL 0.7 mg/dL (0.2-1); TOT PROT 5.7 g/dl (6.4-8.2)
[2021-06-10 09:10] LABS: ALBUMIN 2.2 g/dl (3.4-5.0); ALK PHOS 90 U/L (45-117)
[2021-06-10 09:17] LABS: ANISOCYTOSIS 0; HELMET CELLS 0; HOWELL-JOLLY BODIES 0; MACROCYTOSIS 0; OVALOCYTE 0; PLATELET ESTIMATE NORMAL; ROULEAU 0; SICKELED CELLS 0; TARGET CELLS 0; TEAR DROP CELLS 0; TOXIC GRANULATION 0
[2021-06-10] MEDS ORDERED: MIRTAZAPINE 15 MG TABLET (FP) PO SCH (10:00)
== END 2021-06-10 11:55 | disposition expired | DRG 871 ==
LOC: JER 08:33 → JERBED 10:09 → J4W 15:35
PROVIDERS: ADMIT Family Medicine; ATTEND Family Medicine
DX: A41.89 Other specified sepsis (principal); J18.9 Pneumonia, unspecified organism; J96.91 Respiratory failure, unspecified with hypoxia; R64 Cachexia; E87.2 Acidosis; G30.9 Alzheimer's disease, unspecified; F02.80 Dementia in other diseases classified elsewhere, unspecified severity, without behavioral disturbance, psychotic disturbance, mood disturbance, and anxiety; F20.9 Schizophrenia, unspecified; R41.82 Altered mental status, unspecified; I10 Essential (primary) hypertension; E78.5 Hyperlipidemia, unspecified; F41.8 Other specified anxiety disorders; R26.81 Unsteadiness on feet; Z68.22 Body mass index [BMI] 22.0-22.9, adult; N40.0 Benign prostatic hyperplasia without lower urinary tract symptoms; R07.89 Other chest pain; I46.9 Cardiac arrest, cause unspecified; I25.10 Atherosclerotic heart disease of native coronary artery without angina pectoris; R50.9 Fever, unspecified
CPT/HCPCS: 36415; 71045-TC-FY; 80053; 81003; 82248; 82550; 82553; 82728; 82803; 83605; 83615; 83735; 84443; 84484; 85025; 85610; 85730; 86140; 87040; 87086; 87804; 93005; 93010; 99285-25; C9803; J0131; U0003; U0005